=== PATIENT | male | born 1945 | race Caucasian/White ===

== ENCOUNTER 2024-11-03 18:04 | Outpatient (REF) | payer OTHER, SELFPAY ==
[2024-11-03 17:38] LABS: Abs Immature Grans 0.38 10^3/uL (0.0-0.06); HCT 30.7 % (40.0-50.0); HGB 9.8 g/dL (13.5-17.5); Immature Grans % 3.5 %; MCH 29.4 pg (27.0-33.0); MCHC 31.9 % (32.0-36.0); MCV 92 fL (80-95); MPV 10.7 fL (8.0-11.0); Platelet Count 490 10^3/uL (130-400); RBC 3.33 10^6/uL (4.36-5.78); RDW 13.9 % (11.8-14.1); RDW-SD 47.2 fL; WBC 10.86 10^3/uL (4.4-10.8)
[2024-11-03 17:47] LABS: ALT 24 U/L (16-63); AST 21 U/L (15-37); Albumin 2.2 g/dL (3.4-5.0); Alkaline Phosphatase 122 U/L (46-116); Anion Gap 11.7 mmol/L (3-11); BUN 31 mg/dL (7-18); Bilirubin, Total 0.2 mg/dL (0.2-1.0); CO2 22.3 mmol/L (21.0-32.0); Calcium 8.3 mg/dL (8.5-10.1); Calculated LDL 102 mg/dL (<100); Chloride 104 mmol/L (98-107); Cholesterol 157 mg/dL (<200); Estimated GFR 98.81 (mL/min/1.73m2); Glucose 127 mg/dL (74-106); HDL Cholesterol 29 mg/dL (>or=40); Magnesium 2.1 mg/dL (1.8-2.4); Potassium 4.7 mmol/L (3.5-5.1); Sodium 138 mmol/L (136-145); Total Protein 6.3 g/dL (6.4-8.2); Triglyceride 130 mg/dL (<150)
[2024-11-06 08:53] LABS: Prealbumin 22 mg/dL (20-40)
== END 2024-11-03 18:05 | disposition home or self-care (01) ==
LOC: LBN 18:04
PROVIDERS: Visit Provider Surgery
DX: K81.9 Cholecystitis, unspecified (principal); C22.1 Intrahepatic bile duct carcinoma; C79.51 Secondary malignant neoplasm of bone
CPT/HCPCS: 80053; 80061; 83735; 84100; 84134; 85025

== ENCOUNTER 2024-11-10 18:29 | Outpatient (REF) | payer OTHER, SELFPAY ==
[2024-11-10 16:44] LABS: ALT 24 U/L (16-63); AST 22 U/L (15-37); Albumin 2.3 g/dL (3.4-5.0); Alkaline Phosphatase 112 U/L (46-116); Anion Gap 10.0 mmol/L (3-11); BUN 32 mg/dL (7-18); Bilirubin, Total 0.3 mg/dL (0.2-1.0); CO2 25.0 mmol/L (21.0-32.0); Calcium 8.7 mg/dL (8.5-10.1); Calculated LDL 124 mg/dL (<100); Chloride 101 mmol/L (98-107); Cholesterol 171 mg/dL (<200); Estimated GFR 94.31 (mL/min/1.73m2); Glucose 167 mg/dL (74-106); HDL Cholesterol 31 mg/dL (>or=40); Magnesium 2.0 mg/dL (1.8-2.4); Potassium 4.2 mmol/L (3.5-5.1); Sodium 136 mmol/L (136-145); Total Protein 6.2 g/dL (6.4-8.2); Triglyceride 83 mg/dL (<150)
[2024-11-13 09:52] LABS: Prealbumin 20 mg/dL (20-40)
== END 2024-11-10 18:30 | disposition home or self-care (01) ==
LOC: LBN 18:29
PROVIDERS: Visit Provider Surgery
DX: C22.1 Intrahepatic bile duct carcinoma (principal); C61 Malignant neoplasm of prostate; C79.51 Secondary malignant neoplasm of bone
CPT/HCPCS: 80053; 80061; 85027; 83735; 84100; 84134

== ENCOUNTER 2024-11-17 22:53 | Outpatient (REF) | payer OTHER, SELFPAY ==
[2024-11-17 14:15] LABS: HCT 31.3 % (40.0-50.0); HGB 10.1 g/dL (13.5-17.5); MCH 29.0 pg (27.0-33.0); MCHC 32.3 % (32.0-36.0); MCV 90 fL (80-95); MPV 12.2 fL (8.0-11.0); Platelet Count 244 10^3/uL (130-400); RBC 3.48 10^6/uL (4.36-5.78); RDW 13.9 % (11.8-14.1); RDW-SD 46.0 fL; WBC 7.41 10^3/uL (4.4-10.8)
[2024-11-17 14:28] LABS: ALT 22 U/L (16-63); AST 18 U/L (15-37); Albumin 2.2 g/dL (3.4-5.0); Alkaline Phosphatase 95 U/L (46-116); Anion Gap 8.0 mmol/L (3-11); BUN 31 mg/dL (7-18); Bilirubin, Total 0.3 mg/dL (0.2-1.0); CO2 27.0 mmol/L (21.0-32.0); Calcium 8.0 mg/dL (8.5-10.1); Chloride 103 mmol/L (98-107); Estimated GFR 94.31 (mL/min/1.73m2); Glucose 132 mg/dL (74-106); Magnesium 2.0 mg/dL (1.8-2.4); Potassium 4.3 mmol/L (3.5-5.1); Sodium 138 mmol/L (136-145); Total Protein 5.8 g/dL (6.4-8.2)
[2024-11-17 15:47] LABS: Triglyceride 74 mg/dL (<150)
[2024-11-20 10:03] LABS: Prealbumin 16 mg/dL (20-40)
== END 2024-11-17 22:54 | disposition home or self-care (01) ==
LOC: LBN 22:53
PROVIDERS: Visit Provider Surgery
DX: C22.1 Intrahepatic bile duct carcinoma (principal)
CPT/HCPCS: 80053; 85027; 83735; 84100; 84134; 84478

== ENCOUNTER 2024-11-24 21:07 | Outpatient (REF) | payer OTHER, SELFPAY ==
[2024-11-24 15:31] LABS: Abs Immature Grans 0.11 10^3/uL (0.0-0.06); HCT 32.1 % (40.0-50.0); HGB 10.4 g/dL (13.5-17.5); Immature Grans % 1.5 %; MCH 29.2 pg (27.0-33.0); MCHC 32.4 % (32.0-36.0); MCV 90 fL (80-95); MPV 12.2 fL (8.0-11.0); Platelet Count 286 10^3/uL (130-400); RBC 3.56 10^6/uL (4.36-5.78); RDW 13.8 % (11.8-14.1); RDW-SD 45.6 fL; WBC 7.27 10^3/uL (4.4-10.8)
[2024-11-24 15:45] LABS: ALT 22 U/L (16-63); AST 19 U/L (15-37); Albumin 2.1 g/dL (3.4-5.0); Alkaline Phosphatase 84 U/L (46-116); Anion Gap 9.2 mmol/L (3-11); BUN 28 mg/dL (7-18); Bilirubin, Total 0.2 mg/dL (0.2-1.0); CO2 23.8 mmol/L (21.0-32.0); Calcium 8.0 mg/dL (8.5-10.1); Chloride 104 mmol/L (98-107); Estimated GFR 94.31 (mL/min/1.73m2); Glucose 134 mg/dL (74-106); Magnesium 2.0 mg/dL (1.8-2.4); Potassium 4.5 mmol/L (3.5-5.1); Sodium 137 mmol/L (136-145); Total Protein 5.6 g/dL (6.4-8.2)
[2024-11-24 16:04] LABS: Triglyceride 76 mg/dL (<150)
[2024-11-27 09:18] LABS: Prealbumin 16 mg/dL (20-40)
== END 2024-11-24 21:08 | disposition home or self-care (01) ==
LOC: LBN 21:07
PROVIDERS: Visit Provider Surgery
DX: C22.1 Intrahepatic bile duct carcinoma (principal); C61 Malignant neoplasm of prostate
CPT/HCPCS: 80053; 83735; 84100; 84134; 84478; 85025

== ENCOUNTER 2024-12-01 21:37 | Outpatient (REF) | payer OTHER, SELFPAY ==
[2024-12-01 15:47] LABS: Abs Immature Grans 0.05 10^3/uL (0.0-0.06); HCT 32.4 % (40.0-50.0); HGB 10.4 g/dL (13.5-17.5); Immature Grans % 0.8 %; MCH 28.7 pg (27.0-33.0); MCHC 32.1 % (32.0-36.0); MCV 89 fL (80-95); MPV 11.9 fL (8.0-11.0); Platelet Count 288 10^3/uL (130-400); RBC 3.63 10^6/uL (4.36-5.78); RDW 13.6 % (11.8-14.1); RDW-SD 44.9 fL; WBC 6.50 10^3/uL (4.4-10.8)
[2024-12-01 16:31] LABS: ALT 21 U/L (16-63); AST 20 U/L (15-37); Albumin 2.2 g/dL (3.4-5.0); Alkaline Phosphatase 75 U/L (46-116); Anion Gap 10.8 mmol/L (3-11); BUN 31 mg/dL (7-18); Bilirubin, Total 0.4 mg/dL (0.2-1.0); CO2 25.2 mmol/L (21.0-32.0); Calcium 8.3 mg/dL (8.5-10.1); Chloride 104 mmol/L (98-107); Estimated GFR 94.31 (mL/min/1.73m2); Glucose 117 mg/dL (74-106); Magnesium 2.1 mg/dL (1.8-2.4); Potassium 4.7 mmol/L (3.5-5.1); Sodium 140 mmol/L (136-145); Total Protein 5.8 g/dL (6.4-8.2); Triglyceride 67 mg/dL (<150)
[2024-12-04 08:47] LABS: Prealbumin 17 mg/dL (20-40)
== END 2024-12-01 21:38 | disposition home or self-care (01) ==
LOC: LBN 21:37
PROVIDERS: PCP Surgery; Visit Provider Surgery
DX: C22.1 Intrahepatic bile duct carcinoma (principal); C61 Malignant neoplasm of prostate
CPT/HCPCS: 80053; 83735; 84100; 84134; 84478; 85025

== ENCOUNTER 2024-12-08 18:29 | Outpatient (REF) | payer OTHER, SELFPAY ==
[2024-12-08 15:42] LABS: Abs Immature Grans 0.04 10^3/uL (0.0-0.06); HCT 30.8 % (40.0-50.0); HGB 9.8 g/dL (13.5-17.5); Immature Grans % 0.8 %; MCH 28.2 pg (27.0-33.0); MCHC 31.8 % (32.0-36.0); MCV 89 fL (80-95); MPV 11.8 fL (8.0-11.0); Platelet Count 277 10^3/uL (130-400); RBC 3.47 10^6/uL (4.36-5.78); RDW 13.6 % (11.8-14.1); RDW-SD 44.4 fL; WBC 5.17 10^3/uL (4.4-10.8)
[2024-12-08 16:38] LABS: ALT 21 U/L (16-63); AST 20 U/L (15-37); Albumin 2.1 g/dL (3.4-5.0); Alkaline Phosphatase 71 U/L (46-116); Anion Gap 10.1 mmol/L (3-11); BUN 28 mg/dL (7-18); Bilirubin, Total 0.3 mg/dL (0.2-1.0); CO2 24.9 mmol/L (21.0-32.0); Calcium 7.9 mg/dL (8.5-10.1); Chloride 104 mmol/L (98-107); Estimated GFR 94.31 (mL/min/1.73m2); Glucose 152 mg/dL (74-106); Magnesium 2.0 mg/dL (1.8-2.4); Potassium 4.2 mmol/L (3.5-5.1); Sodium 139 mmol/L (136-145); Total Protein 5.5 g/dL (6.4-8.2); Triglyceride 66 mg/dL (<150)
[2024-12-11 10:13] LABS: Prealbumin 16 mg/dL (20-40)
== END 2024-12-08 18:30 | disposition home or self-care (01) ==
LOC: LBN 18:29
PROVIDERS: PCP Surgery; Visit Provider Surgery
DX: C22.1 Intrahepatic bile duct carcinoma (principal); C61 Malignant neoplasm of prostate
CPT/HCPCS: 80053; 83735; 84100; 84134; 84478; 85025

== ENCOUNTER 2024-12-15 15:46 | Outpatient (REF) | payer OTHER, SELFPAY ==
[2024-12-15 16:06] LABS: Abs Immature Grans 0.08 10^3/uL (0.0-0.06); HCT 31.3 % (40.0-50.0); HGB 10.0 g/dL (13.5-17.5); Immature Grans % 1.2 %; MCH 28.5 pg (27.0-33.0); MCHC 31.9 % (32.0-36.0); MCV 89 fL (80-95); MPV 11.8 fL (8.0-11.0); Platelet Count 326 10^3/uL (130-400); RBC 3.51 10^6/uL (4.36-5.78); RDW 13.8 % (11.8-14.1); RDW-SD 44.7 fL; WBC 6.73 10^3/uL (4.4-10.8)
[2024-12-15 16:25] LABS: ALT 17 U/L (16-63); AST 17 U/L (15-37); Albumin 2.1 g/dL (3.4-5.0); Alkaline Phosphatase 66 U/L (46-116); Anion Gap 6.9 mmol/L (3-11); BUN 31 mg/dL (7-18); Bilirubin, Total 0.3 mg/dL (0.2-1.0); CO2 27.1 mmol/L (21.0-32.0); Calcium 8.4 mg/dL (8.5-10.1); Chloride 105 mmol/L (98-107); Estimated GFR 94.31 (mL/min/1.73m2); Glucose 138 mg/dL (74-106); Magnesium 2.0 mg/dL (1.8-2.4); Potassium 4.3 mmol/L (3.5-5.1); Sodium 139 mmol/L (136-145); Total Protein 5.6 g/dL (6.4-8.2); Triglyceride 59 mg/dL (<150)
[2024-12-18 09:22] LABS: Prealbumin 16 mg/dL (20-40)
== END 2024-12-15 15:47 | disposition home or self-care (01) ==
LOC: LBN 15:46
PROVIDERS: PCP Surgery; Visit Provider Surgery
DX: C22.1 Intrahepatic bile duct carcinoma (principal); C61 Malignant neoplasm of prostate
CPT/HCPCS: 80053; 83735; 84100; 84134; 84478; 85025

== ENCOUNTER 2024-12-22 15:44 | Outpatient (REF) | payer OTHER, SELFPAY ==
[2024-12-22 14:49] LABS: Abs Immature Grans 0.03 10^3/uL (0.0-0.06); HCT 31.8 % (40.0-50.0); HGB 10.4 g/dL (13.5-17.5); Immature Grans % 0.6 %; MCH 28.3 pg (27.0-33.0); MCHC 32.7 % (32.0-36.0); MCV 87 fL (80-95); MPV 11.8 fL (8.0-11.0); Platelet Count 309 10^3/uL (130-400); RBC 3.67 10^6/uL (4.36-5.78); RDW 13.7 % (11.8-14.1); RDW-SD 43.8 fL; WBC 4.80 10^3/uL (4.4-10.8)
== END 2024-12-22 15:45 | disposition home or self-care (01) ==
LOC: LBN 15:44
PROVIDERS: PCP Surgery; Visit Provider Surgery
DX: C79.51 Secondary malignant neoplasm of bone (principal); C61 Malignant neoplasm of prostate; C22.1 Intrahepatic bile duct carcinoma
CPT/HCPCS: 80053; 83735; 84100; 84134; 84478; 85025

== ENCOUNTER 2024-12-23 10:45 | Outpatient (REF) | payer OTHER, SELFPAY ==
[2024-12-23 12:00] LABS: Abs Immature Grans 0.03 10^3/uL (0.0-0.06); HCT 30.5 % (40.0-50.0); HGB 10.0 g/dL (13.5-17.5); Immature Grans % 0.6 %; MCH 28.0 pg (27.0-33.0); MCHC 32.8 % (32.0-36.0); MCV 85 fL (80-95); MPV 11.8 fL (8.0-11.0); Platelet Count 300 10^3/uL (130-400); RBC 3.57 10^6/uL (4.36-5.78); RDW 13.7 % (11.8-14.1); RDW-SD 42.9 fL; WBC 5.44 10^3/uL (4.4-10.8)
[2024-12-23 12:26] LABS: ALT 18 U/L (16-63); AST 18 U/L (15-37); Albumin 2.2 g/dL (3.4-5.0); Alkaline Phosphatase 67 U/L (46-116); Anion Gap 8.3 mmol/L (3-11); BUN 26 mg/dL (7-18); Bilirubin, Total 0.3 mg/dL (0.2-1.0); CO2 24.7 mmol/L (21.0-32.0); Calcium 8.2 mg/dL (8.5-10.1); Chloride 105 mmol/L (98-107); Estimated GFR 94.31 (mL/min/1.73m2); Glucose 101 mg/dL (74-106); Magnesium 2.1 mg/dL (1.8-2.4); Potassium 4.4 mmol/L (3.5-5.1); Sodium 138 mmol/L (136-145); Total Protein 5.8 g/dL (6.4-8.2); Triglyceride 88 mg/dL (<150)
[2024-12-25 09:52] LABS: Prealbumin 18 mg/dL (20-40)
== END 2024-12-23 10:46 | disposition home or self-care (01) ==
LOC: LBN 10:45
PROVIDERS: PCP Surgery; Visit Provider Surgery
DX: C22.1 Intrahepatic bile duct carcinoma (principal); C79.81 Secondary malignant neoplasm of breast
CPT/HCPCS: 80053; 83735; 84100; 84134; 84478; 85025

== ENCOUNTER 2024-12-26 10:44 | Inpatient (IN) | payer OTHER, MEDICARE, SELFPAY ==
[2024-12-26] VITALS (9 sets, daily range): BP systolic 96–133; BP diastolic 50–71; PULSE 87–116; RESP 16–20; TEMP 36.9–38.7; O2SAT 94–98
--- NOTE | 2024-12-26 | DI.RAD_ITS ---
Exam(s) XR PORTABLE CHEST AP EXAM: XR PORTABLE CHEST AP CLINICAL HISTORY: fever, leukopenia, CA patient, looking for source TECHNIQUE: 2D digital imaging was performed. COMPARISON: No exams were available for comparison FINDINGS: A PICC line is in place via the right arm. The tip lies in the upper right atrium. LUNGS: Clear. No pleural abnormality seen. HEART: Normal size. AORTA: Normal diameter. BONES: Unremarkable for age. Soft tissues: Hiatal hernia. IMPRESSION: No acute pulmonary findings. The preliminary [facility] report was reviewed. DATA REPOSITORY: RADIATION DOSE DELIVERED:
--- NOTE | 2024-12-26 11:09 | W.ED.GENAD ---
Discharge Plan Disposition Patient Disposition: Admit to [facility] Condition: Poor Discharge Details Clinical Impression: Vomiting Primary Care Provider: Rebecca Mane ED Provider: Ora Kevin General Date/Time Provider Initiated Documentation: 12/26/24 11:09. Limitations to Documentation: no limitations. Information obtained by: patient, family (), RN notes reviewed and old records reviewed [place] History of Present Illness 79 year old M presents to the emergency department with the chief complaint of vomiting, dysmotility, described as moderate and similar to prior episodes, Quality is described as other (no pain, just sudden episodes of emesis), Patient started experiencing this month(s) (worse the past 24hrs) and it has been constant. No relieving factors improve symptom(s), Eating worsens symptoms . Patient notes fever/chills (fever intermittent since last night), loss of appetite and nausea/vomiting; denies chest pain, cough, headaches, rash, shortness of breath and weakness. Patient did receive the following treatments prior to arrival, other (Reglan) Related Data Allergies Allergy/AdvReac Type Severity Reaction Status Date / Time No Known Allergies Allergy Unverified 12/26/24 10:53 General Stated Complaint: Nausea/Vomit/Diar CESAR: 3 Review of Systems Constitutional Constitutional: Reports as per HPI and Denies headache(s) ENT Ears, Nose, Mouth, and Throat: Denies headache(s) Cardiovascular Cardiovascular: Reports as per HPI, Denies chest pain and Denies dyspnea Respiratory Respiratory: Reports as per HPI, Denies cough and Denies dyspnea Gastrointestinal Gastrointestinal: Reports as per HPI Genitourinary Genitourinary: Denies system reviewed and no additional complaints, except as documented (patient denies any change in urinary habits) Musculoskeletal Musculoskeletal: Reports as per HPI and Denies back pain Integumentary/Breasts Skin/Breast: Reports as per HPI and Denies rash Neurologic Neurologic: Reports as per HPI and Denies headache(s) Exam Const General: cooperative, comfortable, no acute distress, well developed and ill appearing chronically Nutritional Appearance: average body habitus and well nourished Orientation: alert and awake Resp Effort & Inspection: normal respiratory effort, able to speak in complete sentences and no respiratory distress Auscultation: clear to auscultation bilaterally, no rales, no rhonchi and no wheezes Cardio Rate: regular rate Rhythm: regular rhythm Heart Sounds: S1 normal and S2 normal GI Inspection: scar (well healed midline incision) Palpation: soft, not firm, no guarding, no pulsatile masses, not rigid, nontender and No ascites Back/Spine/Pelvis Back: no CVA tenderness Skin General skin exam: no rashes or lesions noted Trauma: no lacerations or abrasions Neuro General: patient alert and patient awake Cognition: normal cognition Speech: speech normal Gait: normal gait Course Vital Signs Vital signs: Vital Signs Temperature 37.1 C 12/26/24 10:54 Pulse 111 H 12/26/24 10:54 Respiratory Rate 20 12/26/24 10:54 Blood Pressure 105/71 12/26/24 10:54 Pulse Oximetry 94 12/26/24 10:54 Temperature 37.1 C 12/26/24 10:57 Temperature Source Temporal Artery Scan 12/26/24 10:57 Pulse 111 H 12/26/24 10:57 Respiratory Rate 20 12/26/24 10:57 Blood Pressure 105/71 12/26/24 10:57 Blood Pressure Position Sitting 12/26/24 10:57 Pulse Oximetry 94 12/26/24 10:57 Oxygen Delivery Method Room Air 12/26/24 10:57 Oxygen Flow Rate 0 12/26/24 10:57 Pain Level 0 12/26/24 10:57 Medical Decision Making Patient is a pleasant 79-year-old gentleman with past medical history significant for poorly differentiated cholangiocarcinoma s/p Whipple, presenting with c/c of vomiting. He reports that he has had daily nausea and vomiting since his Whipple which occurred on October 17 of this year. For this reason, the surgical team advised him that he is not a candidate for further cancer treatments including chemo or radiation despite not having clear margins from his recent Whipple surgery. Patient is on promotility agents, followed by palliative care. He denies any increase in his pain. He does state that he has had fevers intermittently for the past 24 hours. He denies any cough, cold, shortness of breath, runny nose, sore throat, new abdominal pain, change in urinary or bowel habits. Did take an antipyretic yesterday. Patient does receive TPN via PICC line, no recent change in this. Patient is on Reglan as his promotility agent. Despite this, has had vomiting. He reports that the vomiting is fairly spontaneous and not accompanied with significant nausea. He is only able to eat small amounts at a time which helps to prevent this but as adjuvant insufficient at maintaining muscle mass. He does report that he has been maintaining his weight with the assistance of the TPN. Patient previously resided in [place] but recently moved to the area where he can stay with his son and spent time with family as he was given poor prognosis. On exam, patient appears nontoxic. He does appear to have generalized fatigue and some muscular wasting but does not appear cachectic. Lungs are clear. Abdominal exam is benign, nontender. His incision appears to have healed well with no erythema, warmth or drainage. With the patient having known cancer, fever, certainly considered neutropenic fever although less likely as is not actively undergoing treatment. Considered infection associated with his surgery but given time since surgery as well as nontender abdomen, this too is also less likely. Patient is also had prostate cancer with prior prostatectomy being completed, consider UTI as he does have some difficulty with urination at baseline. No changes in this however. Patient did request to have POLST form completed. He reports that he was supposed to have had this completed with his palliative care team but they are going to mail it to him as he is receiving remote treatment from them. He states that he has not received this. This was completed with the patient, his and myself. Patient wants to be DNR DNI and is interested only in minimal treatment to be able to be comfortable but should the option arise for pursuing cancer treatment, he would be interested. Labs reviewed. No leukocytosis. If anything, patient has slight lymphopenia- no neutropenia- patient is slightly lymphopenia of 3.63 which is downtrending from 544 on 9 6. Lactate is within normal limits. CMP without any significant abnormalities. Troponin within normal limits. Lipase within normal limits. Urinalysis pending. With his inability to maintain oral intake that sounds to be progressively worsening, obtain CT to evaluate for any progression of cancer. CT reviewed by radiologist: MPRESSION:: Status post Whipple procedure. No acute abnormality in the abdomen or pelvis. Status post prostatectomy. Sclerotic metastases noted in the right ilium and ischium. Patietn was aware of the mets to the pelvis but reported that it had been very small and localized to the acetabulum. With toño progression, and new pancreatic head mass, will consult [facility] oncology. While it has been reported that he is not a candidate for therapy, he would like to discuss with oncolgy and understand why as well as options. Consulted with Dr. Sharif with oncology at [facility] They advised that they typically do not follow with these patients. However, they will see if they can see them in the clinic. Reevaluated the patient- he is now not able to stop having episodes of heaving or emesis- all non-bloody. Will give another dose of Reglan, he did take his schedueld dosing previously. Consulted with hospitalist regading admission for his persistent emesis. They requested consultation with general surgeon. Spoke with Dr. Noyola regarding admission as well- he will try to figure out what else might be of benefit. After Dennys and Kt spoke, they wonder if patient would be best served with transfer to given his prior surgery with them which is reasonable. I called , they are at surge capacity but will speak with medical office asst given his complex history and call back. [facility] called back and they are listing for the next 2 days. They are trying to get a hold of the surgeon who performed a Whipple given the complexity of the case although he is not currently on-call. If they do call back, will encourage that this get forwarded to the admitting team for further discussion. At the end my shift, plan is for patient to be admitted for further management. PFSH All Active Problems (Updated 12/26/24 @ 17:48 by CITLALLI Nix) Vomiting (Acute) Social History Smoking/Tobacco Use Status: Never Smoking risk assessment performed?: Yes Alcohol Intake: never Drug use: Never Substance use type: does not use Do you feel safe at home: Yes Do you feel safe in your relationship?: Yes
--- NOTE | 2024-12-26 12:36 | NUR.NOTE ---
Nursing Note: Unable to get a blood return from pt's PICC line. Pt has been receiving IV medications at home through PICC line. Pt stated there has been difficulty getting blood return from site. Spoke with provider about giving IV fluids through PICC, Provider ok with that.
[2024-12-26] MEDS: Lactated Ringers 1,000 ML 1000 ML IV (12:47)
[2024-12-26 13:02] LABS: Abs Immature Grans 0.03 10^3/uL (0.0-0.06); HCT 32.2 % (40.0-50.0); HGB 10.4 g/dL (13.5-17.5); Immature Grans % 0.8 %; MCH 27.2 pg (27.0-33.0); MCHC 32.3 % (32.0-36.0); MCV 84 fL (80-95); MPV 11.2 fL (8.0-11.0); Platelet Count 236 10^3/uL (130-400); RBC 3.82 10^6/uL (4.36-5.78); RDW 14.1 % (11.8-14.1); RDW-SD 43.3 fL; WBC 3.63 10^3/uL (4.4-10.8)
[2024-12-26 13:27] LABS: ALT 16 U/L (16-63); AST 19 U/L (15-37); Albumin 2.3 g/dL (3.4-5.0); Alkaline Phosphatase 68 U/L (46-116); Anion Gap 9.0 mmol/L (3-11); BUN 23 mg/dL (7-18); Bilirubin, Total 0.5 mg/dL (0.2-1.0); CO2 24.0 mmol/L (21.0-32.0); Calcium 8.3 mg/dL (8.5-10.1); Chloride 104 mmol/L (98-107); Estimated GFR 87.42 (mL/min/1.73m2); Glucose 151 mg/dL (74-106); Magnesium 1.9 mg/dL (1.8-2.4); Potassium 3.8 mmol/L (3.5-5.1); Sodium 137 mmol/L (136-145); Total Protein 6.2 g/dL (6.4-8.2); Troponin I 17 ng/L (<or=76)
[2024-12-26 13:30] LABS: LDH 181 U/L (85-227); Lipase 17 U/L (<78)
[2024-12-26] MEDS: Normal Saline - Diluent 50 ML VIAL IJ (14:19)
[2024-12-26] MEDS: Omnipaque 350 MG/ML 100 ML BTL IJ (14:19)
[2024-12-26] MEDS: Normal Saline Flush 10 ML SYR IVP ×2 (14:21→20:38)
--- NOTE | 2024-12-26 14:22 | DI.CT_ITS ---
Exam(s) CT ABDOMEN PELVIS W EXAM: CT ABDOMEN PELVIS W CLINICAL HISTORY: abdominal tenderness, vomiting, recent Whipple. TECHNIQUE: Imaging Protocol: Axial computed tomography images with coronal and sagittal reformatted images were created and reviewed CONTRAST MATERIAL: Intravenous: Omnipaque 350 Contrast volume:75 ml Oral: no COMPARISON: No exams were available for comparison FINDINGS: ABDOMEN and PELVIS: Lung Bases: Large hiatal hernia containing portion of the fundus of the stomach as well as fat. Liver: Normal density. No suspicious mass. Cyst in caudate lobe. Additional cyst lateral right lobe. Gallbladder and biliary tract: Cholecystectomy. Status post recent Whipple procedure. No biliary dilation. Pancreas: Low-density area in the pancreatic head. Findings may represent a mass. No prior comparison exams available. No abnormal calcifications or inflammatory process. Spleen: Normal. Kidneys: Normal size, contour and axis. There are stones as well as scarring at the upper pole of the right kidney. There is also a right upper pole cyst. No obstructive uropathy. No suspicious masses seen. Adrenal glands: No masses seen. Vasculature: Abdominal aorta non-dilated. Soft tissues: Midline surgical scar is unremarkable. Bladder: No gross wall thickening. No calculi.No focal mass. Bowel: Suture material at body of stomach and antrum. Status post recent Whipple procedure. No obstruction. No bowel wall thickening. Appendix normal. Sigmoid diverticulosis. Peritoneal cavity: Fluid collection in right lower quadrant adjacent to a pump consistent with reservoir for penile prosthesis. Surgical clips in the low pelvis. No ascites. No focal collection. No mesenteric inflammatory response. No free air. Bones: Old right inferior and superior pubic ramus fractures. Areas of sclerosis in the right ischium, right ilium, with sclerotic bony metastases. Reproductive organs: Penile prosthesis. Status post prostatectomy. Lymph nodes: 2.3 centimeter portacaval lymph node. IMPRESSION:: Status post Whipple procedure. No acute abnormality in the abdomen or pelvis. Status post prostatectomy. Sclerotic metastases noted in the right ilium and ischium. RADIATION DOSE DELIVERED: Total DLP DATA REPOSITORY: All CT scans at this facility are submitted to the National Radiology Data Registry (NRDR) Dose Index Registry (DIR) with the [employer] (ACR). RADIATION OPTIMIZATION: All CT scans at this facility use at least one of these dose optimization techniques: automated exposure control; mA and/or kV adjustment per patient size (includes targeted exams where dose is matched to clinical indication); or iterative reconstruction.
[2024-12-26 14:35] LABS: Glucose Negative (Negative)
--- NOTE | 2024-12-26 15:45 | NUR.NOTE ---
Nursing Note: Patient complained of an episode of vomiting, shaking for about 15 mins. Oral temp 99.3f and BGL 132. Provider notified
[2024-12-26] MEDS: Metoclopramide 10 MG/2 ML VIAL IVP (17:13)
[2024-12-26] MEDS: Lactated Ringers 1,000 ML 500 ML IV (17:13)
--- NOTE | 2024-12-26 17:50 | W.PM.HP.N ---
Date of service: 12/26/24 Time of Service: 17:50 Assessment and Plan Assessment and plan (1) Intractable vomiting without nausea: Status: Acute Assessment and plan: - Unclear cause at this time - Patient did have Whipple procedure October 17, 2024 and has had spontaneous vomiting without nausea since that time - Attempts were made to transfer patient to [facility] where procedure was done but they stated they would place patient on 48-hour list but are unable to accept in transfer at this time due to capacity - Discussed case with [facility] general surgeon Dr. Noyola who recommended trialing different antiemetics, making patient n.p.o. for upper endoscopy tomorrow 12/27/2024 -As needed metoclopramide, and Ativan for vomiting -Patient's surgeon Dr. Ricketts gracefully called and give additional information on the patient. She states she has been on multiple antiemetics and promotility agents without improvement. She also stated that she has been closely following his electrolytes while on TPN and they have all been within normal limits - Upon further questioning of the patient, the real reason he came in is because he vomited 5 times last night and developed a fever, which concerned him. He understands and there may not be a fix for his more chronic vomiting and that it was slowly improving, but given the fever and significant increase in amount of vomiting episodes on the night of 12/25/2024 prompted him to come to the emergency department. -It is possible that increased episodes of vomiting experienced at night prior to arrival as well as fever may be secondary to a viral gastritis, though out of an abundance of caution we will continue with plan to be further evaluated by general surgeon Dr. Noyola, and treat empirically for bacterial infection/sepsis as noted below -Will continue p.o. erythromycin, IV metoclopramide, IV Zofran, and IV Ativan for vomiting - Appreciate nutrition consultation for ongoing TPN (2) Sepsis: Status: Acute Assessment and plan: - Patient tingling meets sepsis criteria at this time with a heart rate of 100, temperature of 101.6 ?F, and leukopenia with a white blood cell count of 3.6, though no source of infection is noted at this time - Given that patient has cholangiosarcoma status post Whipple, will initiate vancomycin and cefepime - Blood cultures were already drawn in the emergency department, will follow-up - Will also order chest x-ray and head CT to look for potential source of infection as CT abdomen pelvis was without potential source (3) Cholangiocarcinoma: Status: Acute Assessment and plan: - Unclear stage at this time - Patient has not had in person follow-up with oncology since his procedure (4) H/O Whipple procedure: Status: Acute Assessment and plan: - Procedure done October 17, 2024 as noted above - Cannot rule out post operative or intraoperative complications resulting in intractable vomiting as noted above History of Present Illness History of Present Illness Chief Complaint: vomiting Narrative: 79-year-old male with a past medical history of poorly differentiated cholangiole sarcoma status post Whipple in October [address] [facility] who presents to the emergency department with vomiting. Patient states that he has had daily nausea and vomiting since having his Whipple on October 17, 2024. He also states that for that reason the surgical team advised him that he is not a candidate for further cancer treatments including chemo or radiation despite not having clear margins from his Whipple procedure. He was placed on promotility agents and has been followed by palliative care stating what prompted him to come in as that he thought he had a fever at home and that his vomiting has been more persistent despite being on Reglan. He also has TPN via a PICC line but this has not had any recent changes. He also states that the vomiting comes on spontaneously but is not associated with any nausea he is only able to tolerate small amounts of p.o. intake. In the emergency department he was noted as having normal physical exam and normal vital signs, as well as CBC only remarkable for some leukopenia and normal CMP. CT abdomen and pelvis was also without acute findings, only notable for status post Whipple procedure and sclerotic metastasis noted in the right ilium and ischium. While in the emergency department he was given IV fluids as well as metoclopramide without improvement. Case was first discussed with [facility] [place] who stated that they do not follow post Whipple procedure patients but stated they would see him in the clinic. Emergency room provider then attempted to reach out to patient's surgeon for transfer, and though the transfer center said that they are at max capacity that would put him on a 48-hour list and attempted to contact his surgeon so that he/she could give additional recommendations. At which time emergency room provider paged hospitalist for admission for patient with intractable vomiting. Review of Systems All systems reviewed & are unremarkable except as noted in HPI and below PFSH All Active Problems (Updated 12/26/24 @ 19:32 by YAA SUAZO) Sepsis (Acute) H/O Whipple procedure (Acute) Cholangiocarcinoma (Acute) Intractable vomiting without nausea (Acute) Intractable vomiting (Acute) Vomiting (Acute) Social History Smoking/Tobacco Use Status: Never Smoking risk assessment performed?: Yes Alcohol Intake: never Drug use: Never Substance use type: does not use Do you feel safe at home: Yes Do you feel safe in your relationship?: Yes Meds Allergies and Home Medications Allergies Allergy/AdvReac Type Severity Reaction Status Date / Time No Known Allergies Allergy Unverified 12/26/24 10:53 Home Medications ?Medication ?Instructions ?Recorded ?Confirmed ?Type acetaminophen 1,000 mg/100 mL (10 1,000 mg IV Q6H 12/26/24 12/26/24 History mg/mL) intravenous solution (Ofirmev) erythromycin estolate 250 mg/5 mL 200 mg PO TID 12/26/24 12/26/24 History oral suspension insulin regular human 100 unit/mL 36 unit subcut QPM 12/26/24 12/26/24 History injection solution (Humulin R Regular U-100 Insulin) lorazepam 0.5 mg tablet 0.5 mg PO Q6H PRN 12/26/24 12/26/24 History metoclopramide HCl 10 mg/mL 10 mg .Route DAILY 12/26/24 12/26/24 History injection syringe ondansetron HCl 4 mg/2 mL 4 mg IV .Q8 PRN 12/26/24 12/26/24 History intravenous syringe pantoprazole 40 mg intravenous 40 mg IV DAILY 12/26/24 12/26/24 History solution (Protonix) Exam Narrative Exam Narrative: Well-appearing gentleman laying in bed in no acute distress, ANO x 4, heart regular rhythm, lungs clear to auscultation bilaterally, abdomen soft, nontender, nondistended Results Labs 12/26/24 12:41 12/26/24 12:41 Labs: Laboratory Results - last 24 hr 12/26/24 12/26/24 12/26/24 12:10 12:41 14:08 WBC 3.63 L RBC 3.82 L Hgb 10.4 L Hct 32.2 L MCV 84 MCH 27.2 MCHC 32.3 RDW 14.1 Plt Count 236 MPV 11.2 H Immature Gran % 0.8 Neutrophils % 81.6 Lymphocytes % 8.8 Monocytes % 8.5 Eosinophils % 0.0 Basophils % 0.3 Nucleated RBC % 0.0 Absolute Neutrophils 2.96 Absolute Lymphocytes 0.32 L Absolute Monocytes 0.31 Absolute Eosinophils 0.00 Absolute Basophils 0.01 VBG Lactate 1.6 Sodium 137 Potassium 3.8 Chloride 104 Carbon Dioxide 24.0 Anion Gap 9.0 BUN 23 H Creatinine 0.9 Est GFR (CKD-EPI 2020) 87.42 Glucose 151 H Calcium 8.3 L Magnesium 1.9 Total Bilirubin 0.5 AST 19 ALT 16 Alkaline Phosphatase 68 Lactate Dehydrogenase 181 Troponin I Cancelled 17 Total Protein 6.2 L Albumin 2.3 L Lipase 17 Urine Color Yellow Urine Clarity Clear Urine pH 7.0 Ur Specific Blanco 1.025 Urine Protein Negative Urine Ketones Negative Urine Blood Negative Urine Nitrite Negative Urine Bilirubin Negative Urine Urobilinogen 1.0 H Ur Leukocyte Esterase Negative Urine Glucose Negative 12/26/24 14:10 WBC RBC Hgb Hct MCV MCH MCHC RDW Plt Count MPV Immature Gran % Neutrophils % Lymphocytes % Monocytes % Eosinophils % Basophils % Nucleated RBC % Absolute Neutrophils Absolute Lymphocytes Absolute Monocytes Absolute Eosinophils Absolute Basophils VBG Lactate Sodium Potassium Chloride Carbon Dioxide Anion Gap BUN Creatinine Est GFR (CKD-EPI 2020) Glucose Calcium Magnesium Total Bilirubin AST ALT Alkaline Phosphatase Lactate Dehydrogenase Troponin I Cancelled Total Protein Albumin Lipase Urine Color Urine Clarity Urine pH Ur Specific Blanco Urine Protein Urine Ketones Urine Blood Urine Nitrite Urine Bilirubin Urine Urobilinogen Ur Leukocyte Esterase Urine Glucose Last Vital Signs Temp 101.6 F H 12/26/24 17:30 Pulse 103 H 12/26/24 17:30 Resp 18 12/26/24 17:30 BP 129/57 L 12/26/24 17:30 Pulse Ox 97 12/26/24 17:30 Time Spent Time spent with Patient: >75 minutes Time was spent: preparing to see the patient(eg.review tests), obtaining and/or reviewing separately otained hiistory, ordering medications,tests, procedures, referring, communicating with other health patient care assistant, indepentently interpreting results, counseling the patient and care coordination
[2024-12-26] MEDS: ACETAMINOPHEN 1,000 MG/100 ML BAG 400 MG IVPB (17:53)
--- NOTE | 2024-12-26 19:04 | SCONE_ITS ---
Date of service: 12/26/24 Time of Service: 19:04 Assessment and Plan Assessment and plan (1) Intractable vomiting without nausea: Status: Acute Assessment and plan: The fact that the nausea and vomiting started immediately after surgery, and has persisted suggest that this is probably an anatomic issue as opposed to delayed gastric emptying after distal gastrectomy. By my read, there is really not much contrast that leaves the stomach on the early CAT scan performed at [facility] in the early part of his recovery. In the CAT scan performed today is a little difficult to interpret without enteral contrast. Based on the operative report, as well as some of the pictures, I doubt that the gastrojejunostomy is strictured. Staple line is evident on the CAT scan and at least that part on today's study appears to be widely patent. Although this can be difficult to interpret when multiple staple lines are in the same area. It is also possible that there is a obstruction from passage of this loop through the transverse colon mesentery. Classically, this mesenteric defect was sutured up onto the stomach in order to prevent stress on that loop of small intestine, and obstructive pathophysiology. Although that practice is variable, I do not see any description in the operative report that that was performed, and I suppose it with a large hiatal hernia, the upward movement of the stomach could be pulling that limb up through the transverse colon mesentery resulting in obstruction phenomenon at the gastrojejunostomy. For now, I think keeping him n.p.o. is the most reasonable course. You could try droperidol to see if that helps with the vomiting. If the symptoms are really intractable, the nasogastric decompression would be the next step. So long as he can tolerate it, I think a fluoroscopic upper GI with contrast would be reasonable next step. History of Present Illness History of Present Illness Chief Complaint: nasuea and vomiting Narrative: Noe is 79 years old. 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 Essentially, he had a Whipple procedure, with a retrocolic retrogastric Billroth II gastrojejunostomy. His postoperative course was complicated by persistent nausea and vomiting requiring total parenteral nutrition. He did undergo a CAT scan in the first week or so after surgery which essentially described postsurgical changes. Although the gastrojejunostomy is said to be patent, there is really not much contrast that passes through it on the study. The [facility] notes describe plan for gastric emptying study, but that was never performed. He was discharged home on total parenteral nutrition. Since then he had some transient improvement in the nausea and vomiting. He has tried erythromycin, and currently takes Reglan. This might improve the symptoms a little bit, but certainly does not relieve them such that he can eat. He comes to the emergency department today with worsening of his nausea and vomiting associated with fevers PFSH All Active Problems (Updated 12/26/24 @ 19:32 by YAA SUAZO) Sepsis (Acute) H/O Whipple procedure (Acute) Cholangiocarcinoma (Acute) Intractable vomiting without nausea (Acute) Intractable vomiting (Acute) Vomiting (Acute) Social History Smoking/Tobacco Use Status: Never Smoking risk assessment performed?: Yes Alcohol Intake: never Drug use: Never Substance use type: does not use Housing: apartment Do you feel safe at home: Yes Do you feel safe in your relationship?: Yes Exam GI Other: Abdomen soft, nontender nondistended. Results Last Vital Signs Temp 101.6 F H 12/26/24 17:30 Pulse 103 H 12/26/24 17:30 Resp 18 12/26/24 17:30 BP 129/57 L 12/26/24 17:30 Pulse Ox 97 12/26/24 17:30 Labs 12/27/24 06:15 12/27/24 06:15 Labs: Laboratory Results - last 24 hr 12/26/24 12/26/24 12/26/24 12:10 12:41 14:08 WBC 3.63 L RBC 3.82 L Hgb 10.4 L Hct 32.2 L MCV 84 MCH 27.2 MCHC 32.3 RDW 14.1 Plt Count 236 MPV 11.2 H Immature Gran % 0.8 Neutrophils % 81.6 Lymphocytes % 8.8 Monocytes % 8.5 Eosinophils % 0.0 Basophils % 0.3 Nucleated RBC % 0.0 Absolute Neutrophils 2.96 Absolute Lymphocytes 0.32 L Absolute Monocytes 0.31 Absolute Eosinophils 0.00 Absolute Basophils 0.01 VBG Lactate 1.6 Sodium 137 Potassium 3.8 Chloride 104 Carbon Dioxide 24.0 Anion Gap 9.0 BUN 23 H Creatinine 0.9 Est GFR (CKD-EPI 2020) 87.42 Glucose 151 H Calcium 8.3 L Magnesium 1.9 Total Bilirubin 0.5 AST 19 ALT 16 Alkaline Phosphatase 68 Lactate Dehydrogenase 181 Troponin I Cancelled 17 Total Protein 6.2 L Albumin 2.3 L Lipase 17 Urine Color Yellow Urine Clarity Clear Urine pH 7.0 Ur Specific [place] 1.025 Urine Protein Negative Urine Ketones Negative Urine Blood Negative Urine Nitrite Negative Urine Bilirubin Negative Urine Urobilinogen 1.0 H Ur Leukocyte Esterase Negative Urine Glucose Negative 12/26/24 14:10 WBC RBC Hgb Hct MCV MCH MCHC RDW Plt Count MPV Immature Gran % Neutrophils % Lymphocytes % Monocytes % Eosinophils % Basophils % Nucleated RBC % Absolute Neutrophils Absolute Lymphocytes Absolute Monocytes Absolute Eosinophils Absolute Basophils VBG Lactate Sodium Potassium Chloride Carbon Dioxide Anion Gap BUN Creatinine Est GFR (CKD-EPI 2020) Glucose Calcium Magnesium Total Bilirubin AST ALT Alkaline Phosphatase Lactate Dehydrogenase Troponin I Cancelled Total Protein Albumin Lipase Urine Color Urine Clarity Urine pH Ur Specific [place] Urine Protein Urine Ketones Urine Blood Urine Nitrite Urine Bilirubin Urine Urobilinogen Ur Leukocyte Esterase Urine Glucose Imaging Abdomen CT scan report/results: report reviewed and image reviewed CT scan - pelvis: report reviewed and image reviewed
--- NOTE | 2024-12-26 19:18 | W.PC.ACHO ---
Registration Status: REG ER Primary Language: Preferred Language: ED Information & Data Chief Complaint Nausea/Vomit/Diar 12/26/24 15:06 Chief Complaint Nausea/Vomit/Diar 12/26/24 12:57 Other Complaint Fever 12/26/24 10:54 Triage Note 09/17 adarsh at [facility] [place] Not 12/26/24 10:54 doing chemo or radiation at this time. Has been vomiting BID since surgery. Yesterday began vomiting throughout the day. Unable to keep anything down. Is on TPN. Has been having fever. Did not take tylenol today. Most Recent Vital Signs Temperature 38.7 C H 12/26/24 17:30 Temperature Source Oral 12/26/24 17:30 Pulse 103 H 12/26/24 17:30 Pulse Rhythm Regular 12/26/24 15:05 Respiratory Rate 18 12/26/24 17:30 Respiratory Effort Normal, Non-Labored 12/26/24 17:30 Respiratory Depth Normal 12/26/24 17:30 Respiratory Pattern Normal 12/26/24 17:30 Blood Pressure 129/57 L 12/26/24 17:30 Blood Pressure Mean 81 12/26/24 17:30 Blood Pressure Position Sitting 12/26/24 10:57 Pulse Oximetry 97 12/26/24 17:30 Oxygen Delivery Method Room Air 12/26/24 13:52 Oxygen Flow Rate 0 12/26/24 13:52 Pain Level 0 12/26/24 10:57 Allergies No Known Allergies Allergy (Unverified 12/26/24 10:53) Precautions Isolation Standard precaution 12/26/24 15:06 Active Medications Generic Name Dose Route Start Last Admin Trade Name Freq PRN Reason Stop Dose Admin Iohexol 100 ml 12/26/24 14:30 12/26/24 14:19 Omnipaque 350 Mg/Ml 100 Ml Btl IJ 01/25/25 23:59 75 ml DIRECTED LASHAY Administration Sodium Chloride 50 ml 12/26/24 14:30 12/26/24 14:19 Normal Saline - Diluent 50 Ml Vial IJ 50 ml DIRECTED LASHAY Administration Sodium Chloride 0 ml 12/26/24 14:18 12/26/24 14:21 Normal Saline Flush 10 Ml Syr IVP 10 ml PRN PRN Administration IV IV Catheter Type [Right PICC] PICC Line Diagnostics 12/26/24 12/26/24 12/26/24 Range/Units 14:10 14:08 12:41 WBC 3.63 L (4.4-10.8) 10^3/uL RBC 3.82 L (4.36-5.78) 10^6/uL Hgb 10.4 L (13.5-17.5) g/dL Hct 32.2 L (40.0-50.0) % MCV 84 (80-95) fL MCH 27.2 (27.0-33.0) pg MCHC 32.3 (32.0-36.0) % RDW 14.1 (11.8-14.1) % Plt Count 236 (130-400) 10^3/uL MPV 11.2 H (8.0-11.0) fL Immature Gran % 0.8 % Neutrophils % 81.6 % Lymphocytes % 8.8 % Monocytes % 8.5 % Eosinophils % 0.0 % Basophils % 0.3 % Nucleated RBC % 0.0 (0.0-0.3) % Absolute Neutrophils 2.96 (1.2-6.7) 10^3/uL Absolute Lymphocytes 0.32 L (1.2-3.4) 10^3/uL Absolute Monocytes 0.31 (0.1-0.8) 10^3/uL Absolute Eosinophils 0.00 (0.0-0.7) 10^3/uL Absolute Basophils 0.01 (0.0-0.2) 10^3/uL VBG Lactate 1.6 (<or=2.0) mmol/L Sodium 137 (136-145) mmol/L Potassium 3.8 (3.5-5.1) mmol/L Chloride 104 (98-107) mmol/L Carbon Dioxide 24.0 (21.0-32.0) mmol/L Anion Gap 9.0 (3-11) mmol/L BUN 23 H (7-18) mg/dL Creatinine 0.9 (0.70-1.30) mg/dL Est GFR (CKD-EPI 2020) 87.42 (mL/min/1.73m2) Glucose 151 H (74-106) mg/dL Calcium 8.3 L (8.5-10.1) mg/dL Magnesium 1.9 (1.8-2.4) mg/dL Total Bilirubin 0.5 (0.2-1.0) mg/dL AST 19 (15-37) U/L ALT 16 (16-63) U/L Alkaline Phosphatase 68 (46-116) U/L Lactate Dehydrogenase 181 (85-227) U/L Troponin I Cancelled 17 Total Protein 6.2 L (6.4-8.2) g/dL Albumin 2.3 L (3.4-5.0) g/dL Lipase 17 (<78) U/L Urine Color Yellow (Yellow) Urine Clarity Clear (Clear) Urine pH 7.0 (5-8) Ur Specific [place] 1.025 (1.005-1.025) Urine Protein Negative (Neg-Trace) mg/dL Urine Ketones Negative (Negative) mg/dL Urine Blood Negative (Negative) Urine Nitrite Negative (Negative) Urine Bilirubin Negative (Negative) Urine Urobilinogen 1.0 H (Up to 0.2) mg/dL Ur Leukocyte Esterase Negative (Negative) Urine Glucose Negative (Negative) mg/dL 12/26/24 Range/Units 12:10 WBC (4.4-10.8) 10^3/uL RBC (4.36-5.78) 10^6/uL Hgb (13.5-17.5) g/dL Hct (40.0-50.0) % MCV (80-95) fL MCH (27.0-33.0) pg MCHC (32.0-36.0) % RDW (11.8-14.1) % Plt Count (130-400) 10^3/uL MPV (8.0-11.0) fL Immature Gran % % Neutrophils % % Lymphocytes % % Monocytes % % Eosinophils % % Basophils % % Nucleated RBC % (0.0-0.3) % Absolute Neutrophils (1.2-6.7) 10^3/uL Absolute Lymphocytes (1.2-3.4) 10^3/uL Absolute Monocytes (0.1-0.8) 10^3/uL Absolute Eosinophils (0.0-0.7) 10^3/uL Absolute Basophils (0.0-0.2) 10^3/uL VBG Lactate (<or=2.0) mmol/L Sodium (136-145) mmol/L Potassium (3.5-5.1) mmol/L Chloride (98-107) mmol/L Carbon Dioxide (21.0-32.0) mmol/L Anion Gap (3-11) mmol/L BUN (7-18) mg/dL Creatinine (0.70-1.30) mg/dL Est GFR (CKD-EPI 2020) (mL/min/1.73m2) Glucose (74-106) mg/dL Calcium (8.5-10.1) mg/dL Magnesium (1.8-2.4) mg/dL Total Bilirubin (0.2-1.0) mg/dL AST (15-37) U/L ALT (16-63) U/L Alkaline Phosphatase (46-116) U/L Lactate Dehydrogenase (85-227) U/L Troponin I Cancelled Total Protein (6.4-8.2) g/dL Albumin (3.4-5.0) g/dL Lipase (<78) U/L Urine Color (Yellow) Urine Clarity (Clear) Urine pH (5-8) Ur Specific [place] (1.005-1.025) Urine Protein (Neg-Trace) mg/dL Urine Ketones (Negative) mg/dL Urine Blood (Negative) Urine Nitrite (Negative) Urine Bilirubin (Negative) Urine Urobilinogen (Up to 0.2) mg/dL Ur Leukocyte Esterase (Negative) Urine Glucose (Negative) mg/dL 12/26/24 12:41 Blood Culture - Pending Blood 12/26/24 12:41 Blood Culture - Pending Blood [id number] Documentation Fingerstick Glucose Start: 12/26/24 15:43 Freq: .Stat Status: Active Protocol: Activity Type Activity Date Activity User E-sign Co-sign Detail Recorded Client Recorded Date Recorded By Document 12/26/24 15:41 BKG DAEMON(3) [id number] 12/26/24 15:44 BKG DAEMON(4) Intake and Output - 24 Hour Total 12/26/24 10:44 thru 12/26/24 13:47 Intake Total 1000 Balance 1000 Weight 84.368 kg Intake: IV 1000 Falls Risk Assessment History of Falls No History 12/26/24 11:39 Contributing Factors No Factors 12/26/24 11:39 Ambulatory Aids Independent 12/26/24 11:39 Tubes/Lines None 12/26/24 11:39 Gait Evaluation No gait disturbance 12/26/24 11:39 Cognition No cognitive impairment 12/26/24 11:39 Fall Total Score 0 12/26/24 11:39 Level of Risk Standard/Low Risk 12/26/24 11:39 Problems Sepsis (Acute) H/O Whipple procedure (Acute) Cholangiocarcinoma (Acute) Intractable vomiting without nausea (Acute) Notes 12/26/24 15:45 Nursing Notes by Torri Taylor Nursing Note: Patient complained of an episode of vomiting, shaking for about 15 mins. Oral temp 99.3f and BGL 132. Provider notified Initialized on 12/26/24 15:45 - END OF NOTE 12/26/24 12:36 Nursing Notes by Torri Taylor Nursing Note: Unable to get a blood return from pt's PICC line. Pt has been receiving IV medications at home through PICC line. Pt stated there has been difficulty getting blood return from site. Spoke with provider about giving IV fluids through PICC, Provider ok with that. Initialized on 12/26/24 12:36 - END OF NOTE v v v v v v v v v Sending and/or Receiving Nurses: Please use comment section below to note any information pertinent to the patient hand-off not included above. Information / Comments: Pt arrived to unit with nursing at 1910, received tylenol for fever, 2L of IVF in ED. Upon transfer, pt alert, oriented, on protective precautions for leukopenia. VSS. Report received from:FRANCISCO Wild
[2024-12-26] MEDS: Normal Saline 1,000 ML 75 ML IV (20:18)
[2024-12-26] MEDS: VANCOMYCIN 2,000 MG in Normal Saline 500 ML 250 MG IVPB (21:27)
--- NOTE | 2024-12-26 22:44 | DI.VRAD_ITS ---
PROCEDURE INFORMATION: Exam: XR Chest Exam date and time: 12/26/2024 9:01 PM Age: 79 years old Clinical indication: Fever; Additional info: Fever, leukopenia, CA patient, looking for source TECHNIQUE: Imaging protocol: Radiologic exam of the chest. Views: 1 view. COMPARISON: CT ABDOMEN PELVIS W 12/26/2024 2:11 PM FINDINGS: Tubes, catheters and devices: Right-sided PICC line identified with its tip in the right atrium. Lungs: Unremarkable. No consolidation. Pleural spaces: Unremarkable. No pleural effusion. No pneumothorax. Heart/Mediastinum: Large hiatal hernia. Bones/joints: Unremarkable. IMPRESSION: 1. No acute infiltrates. 2. Hiatal hernia. Dictated and Authenticated by: Alec Chin MD. Orderin Kt Diana MD
[2024-12-26] MEDS: CEFEPIME 2 GM in Normal Saline 100 ML IVPB (23:49)
--- NOTE | 2024-12-27 | DI.RAD_ITS ---
Exam(s) RF SMALL BOWEL SERIES EXAM: RF SMALL BOWEL SERIES CLINICAL HISTORY: vomiting after whipple procedure TECHNIQUE: 2D and realtime digital imaging was performed. CONTRAST MATERIAL: Oral barium contrast was administered. COMPARISON: CT CT ABDOMEN PELVIS W from 12/26/2024 FINDINGS: Portable supine views were performed at 11 a.m. time when the patient began drinking the contrast was not documented. Small amount of contrast remains present within the stomach. Portion of the stomach is again noted to extend above the diaphragm. The registration rep contrast is within mid to distal small bowel as well as in the colon, to the level of the rectum. There is no evidence of obstruction. There is some contrast reflux into the biliary tree which is not dilated. IMPRESSION: No evidence of obstruction at the level of the hiatal hernia or at the stomach. No evidence of small-bowel or colonic obstruction. Patient is status post Whipple procedure in there is contrast extending into the biliary tree. RADIATION DOSE DELIVERED:
[2024-12-27 04:40] VITALS: BP 116/53; PULSE 91; RESP 17; TEMP 36.8; O2SAT 95
[2024-12-27 07:10] LABS: HCT 26.5 % (40.0-50.0); HGB 8.9 g/dL (13.5-17.5); MCH 28.6 pg (27.0-33.0); MCHC 33.6 % (32.0-36.0); MCV 85 fL (80-95); MPV 11.7 fL (8.0-11.0); Platelet Count 178 10^3/uL (130-400); RBC 3.11 10^6/uL (4.36-5.78); RDW 14.4 % (11.8-14.1); RDW-SD 44.7 fL; WBC 2.71 10^3/uL (4.4-10.8)
[2024-12-27 07:28] LABS: Anion Gap 9.0 mmol/L (3-11); BUN 14 mg/dL (7-18); CO2 23.0 mmol/L (21.0-32.0); Calcium 7.6 mg/dL (8.5-10.1); Chloride 107 mmol/L (98-107); Estimated GFR 90.58 (mL/min/1.73m2); Glucose 118 mg/dL (74-106); Magnesium 1.8 mg/dL (1.8-2.4); Potassium 3.8 mmol/L (3.5-5.1); Sodium 139 mmol/L (136-145)
[2024-12-27 07:34] LABS: Vancomycin, Random 13.5 ug/mL
[2024-12-27] MEDS: CEFEPIME 2 GM in Normal Saline 100 ML IVPB ×2 (08:34→16:50)
[2024-12-27] MEDS: Normal Saline Flush 10 ML SYR IVP ×2 (08:48→22:25)
[2024-12-27] MEDS: Metoclopramide 10 MG TAB PO (08:48)
--- NOTE | 2024-12-27 08:53 | W.PM.PROGNOT ---
Date of Service Date of service: 12/27/24 Time of Service: 08:53 Assessment and Plan Assessment and plan (1) Intractable vomiting without nausea: Status: Acute Assessment and plan: Awaiting studies ordered by Dr. Noyola for further evaluation to determine any limitations or causes of nausea and vomiting. Encouraged activity OOB and sitting in the chair Continue NPO Reviewed PA's note and I agree with he HPI, assessment and plan. Vomiting since october 2024 when he underwent whiple for cholangiocarcinoma. fluoro study completed today shows patent nonstenotic GJ and distal anastomoses, hepaticojej intact and patent also with contrast refluxing into biliary tree. No signs of obstruction or a clear cause for the vomiting. [place] considering a feeding jejunostomy on patient. Discussed with him and his partner - I recommend they [place] [facility] [place] would know best if this would be indicated at this time or not, and know best which technique for placement would be optimal. Enteral nutrition would be preferred over parenteral as long as gut is usable and unobstructed. more distal feeding into small bowel rather than feeding into stomach is preferred w his anatomy and with the constant vomiting. No indication for feeding tube urgently now, and it is in his benefit to discuss this with Dr Ricketts at length as she would be most knowledgable about appropriateness in his clinical case. TPN ordered as standard. pt has pics on his mobile phone of the tpn he has at home, this should be reviewed by the RD and considered. Signing off, will follow peripherally. Subjective Subjective Interval history since last seen: Noe denies any nausea at this moment. He denies any pain, SOB, fevers or chills at this time. Exam Const General: cooperative, healthy appearing and comfortable Orientation: alert and oriented x3 Resp Effort & Inspection: normal respiratory effort, no audible wheezes and no cough Objective Last Vital Signs Temp 36.8 C 12/27/24 04:40 Pulse 91 H 12/27/24 04:40 Resp 17 12/27/24 04:40 BP 116/53 L 12/27/24 04:40 Pulse Ox 95 12/27/24 04:40 Laboratory Results - last 24 hr 12/26/24 12/26/24 12/26/24 12:10 12:41 14:08 WBC 3.63 L RBC 3.82 L Hgb 10.4 L Hct 32.2 L MCV 84 MCH 27.2 MCHC 32.3 RDW 14.1 Plt Count 236 MPV 11.2 H Immature Gran % 0.8 Neutrophils % 81.6 Lymphocytes % 8.8 Monocytes % 8.5 Eosinophils % 0.0 Basophils % 0.3 Nucleated RBC % 0.0 Absolute Neutrophils 2.96 Absolute Lymphocytes 0.32 L Absolute Monocytes 0.31 Absolute Eosinophils 0.00 Absolute Basophils 0.01 VBG Lactate 1.6 Sodium 137 Potassium 3.8 Chloride 104 Carbon Dioxide 24.0 Anion Gap 9.0 BUN 23 H Creatinine 0.9 Est GFR (CKD-EPI 2020) 87.42 Glucose 151 H Calcium 8.3 L Magnesium 1.9 Total Bilirubin 0.5 AST 19 ALT 16 Alkaline Phosphatase 68 Lactate Dehydrogenase 181 Troponin I Cancelled 17 Total Protein 6.2 L Albumin 2.3 L Lipase 17 Urine Color Yellow Urine Clarity Clear Urine pH 7.0 Ur Specific [place] 1.025 Urine Protein Negative Urine Ketones Negative Urine Blood Negative Urine Nitrite Negative Urine Bilirubin Negative Urine Urobilinogen 1.0 H Ur Leukocyte Esterase Negative Urine Glucose Negative Random Vancomycin 12/26/24 12/27/24 14:10 06:15 WBC 2.71 L RBC 3.11 L Hgb 8.9 L Hct 26.5 L MCV 85 MCH 28.6 MCHC 33.6 RDW 14.4 H Plt Count 178 MPV 11.7 H Immature Gran % Neutrophils % Lymphocytes % Monocytes % Eosinophils % Basophils % Nucleated RBC % Absolute Neutrophils Absolute Lymphocytes Absolute Monocytes Absolute Eosinophils Absolute Basophils VBG Lactate Sodium 139 Potassium 3.8 Chloride 107 Carbon Dioxide 23.0 Anion Gap 9.0 BUN 14 Creatinine 0.8 Est GFR (CKD-EPI 2020) 90.58 Glucose 118 H Calcium 7.6 L Magnesium 1.8 Total Bilirubin AST ALT Alkaline Phosphatase Lactate Dehydrogenase Troponin I Cancelled Total Protein Albumin Lipase Urine Color Urine Clarity Urine pH Ur Specific [place] Urine Protein Urine Ketones Urine Blood Urine Nitrite Urine Bilirubin Urine Urobilinogen Ur Leukocyte Esterase Urine Glucose Random Vancomycin 13.5 Time Spent with Patient Time Spent with Patient: <25 minutes Time was spent: preparing to see the patient(eg.review tests), obtaining and/or reviewing separately otained hiistory and counseling the patient
[2024-12-27] MEDS: VANCOMYCIN/WATER (PEG) 1 GM/200 ML BAG IVPB ×2 (08:55→20:11)
[2024-12-27 11:30] VITALS: BP 121/82; PULSE 122; RESP 16; TEMP 37.5; O2SAT 95
[2024-12-27 12:06] VITALS: TEMP 37.5
[2024-12-27] MEDS: Acetaminophen 325 MG TAB 650 MG PO (12:06)
[2024-12-27] MEDS: Normal Saline 1,000 ML 75 ML IV (12:09)
--- NOTE | 2024-12-27 13:10 | PDOC.CMIN ---
Date of service: 12/27/24 Time of Service: 15:47 Care Management Initial Assmt Initial Assessment Reason for Hospitalization: Intractable Vomiting Functional Status/Living Situation Patient Presentation: Noe was lying in bed and visiting with his Sonya when CM met with him. He presented to the ED presenting with c/c of vomiting. Per report he underwent a Whipple surgery in October (). Nutrition, palliative, and surgical consults placed. Noe will have an x-ray today. Per report, Noe uses TPN chronically; [facility] is the supplier. Noe and Sonya were pleasant and open to conversation. They currently reside in the in-law apartment at their son?s home in [place], although they also maintain a residence in [place]. They report enjoying their time in [place]. Noe shared that he has four sons and three grandsons. He enjoys spending time outdoors and playing with his dog, Two Dot. He is independent at baseline. Noe is established with the palliative care team at [facility]. His , Sonya, is his primary support and states that she attends to his daily needs; Noe confirms this. They currently receive home health RN visits but do not utilize any other home health services. All home DME has been obtained through [employer], and they report feeling well-equipped at home. Noe states he would like to establish his oncology care at [facility] as it is closer to his current residence. CM will continue to follow. Town of Residence: [place] Resides with: Spouse Significant Other/Family: Local Natural Supports: Family Employment Status: Retired Instrumental Activities of Daily Living (ADLs): Independent Medications Medication Management: No Issues/Barriers identified Physical Functioning/Mobility Assistive Device: has a cane, walker, and wheelchair at home but doesnt not often use any of these. Advance Directives Advance Directives: Do you have an Advance Directive: Y 12/26/24, 12:[address] File [address] [facility]: N 12/26/24, 12:02 Date Asked 12/26/24 Today, 07:44 AD Date Reviewed COLST On File at [facility] COLST Date Scanned Code Status Resuscitation Status DNR/DNI Portal Pt does not currently have a portal and education provided: Yes Insurance Coverage/Financial Issues Insurance: CBA - [id number] Medicare Part A & B - [id number] Care Team Visit Care Team Role Provider Type Vladislav Ramirez MD MD [facility] STAFF PHYSICIAN Rebecca Mane Primary Care Provider NON-[facility] STAFF PHYSICIAN Franca Pink, MARIO, [facility] Other Providers LEAN CONSULTANT Javier Huntley RDN Other Providers LEAN CONSULTANT Ayo Noyola MD Other Providers [facility] STAFF PHYSICIAN CITLALLI Nix Emergency Provider PHYSICIANS TANK WAGON OPERATOR Lebron Meraz MD Admit Provider [facility] STAFF PHYSICIAN Attending Provider Discharge Potential Discharge Needs: PCP F/U Appt Anticipated Barriers to Discharge: None Identified Patient/Family Education Needs: Review discharge instructions, discuss Ask Me Three Transportation: Private vehicle Plan: Anticipate Noe will be discharged home with a resumption of RN, once medically ready. It is recommended he follow up with his community providers, palliative care, and discharge plan of care. He will be transported home via private vehicle. CM will continue to follow. Social Determinants of Health Screening Social Determinants of health last assessed in clinic: 12/27/24 Will the Patient Participate in the Screening?: Yes Do you worry about having a steady place to live?: no Problems where you live: no known problems In the past 12 months, have you had to go without electric, gas, oil or water in your home?: no 1. Within the past 12 months, we worried whether our food would run out before we got money to buy more.: Never true 2. Within the past 12 months, the food we bought just didn't last and we didn't have money to get more.: Never true Has lack of transportation kept you from medical appointments or from doing things needed for daily living?: no Has anyone in your life made you feel unsafe or unsupported?: no How hard is it for you to pay for the very basics like food, housing, medical care, and heating? Would you say it is:: Not hard at all Do you want help finding or keeping work or a job?: I do not need or want help If for any reason you need help with day-to-day activities such as bathing, preparing meals, shopping, managing finances, etc., do you get the help you need?: I don?t need any help How often do you feel lonely or isolated from those around you?: Never Do you speak a language other than Korean at home?: No Does the patient want assistance with any of the above?: No PFSH All Active Problems (Updated 12/26/24 @ 19:32 by YAA SUAZO) Sepsis (Acute) H/O Whipple procedure (Acute) Cholangiocarcinoma (Acute) Intractable vomiting without nausea (Acute) Intractable vomiting (Acute) Vomiting (Acute) Social History Smoking/Tobacco Use Status: Never Smoking risk assessment performed?: Yes Alcohol Intake: never Drug use: Never Substance use type: does not use Housing: apartment Do you feel safe at home: Yes Do you feel safe in your relationship?: Yes Readmission Within the Past 30 Days Yes or No: No
[2024-12-27] MEDS: Ondansetron 4 MG/2 ML VIAL IVP ×2 (13:21→22:24)
[2024-12-27] MEDS: Barium Sulfate 60% W/V 355 ML BTL PO (14:35)
--- NOTE | 2024-12-27 14:51 | NUR.NOTE ---
Nursing Note: Right upper arm PICC inserted prior to admission. Per Pt , the PICC line dressing was changed last WednesdayDec 22 at home. He reports he was using the line for TPN. PICC line dressing changed today per Hospital policy.
[2024-12-27 15:20] VITALS: BP 107/68; PULSE 79; RESP 16; TEMP 37.2; O2SAT 97
--- NOTE | 2024-12-27 16:16 | NS.NUTBLAN_ITS ---
Date of service: 12/27/24 Time of Service: 16:17 Nutritional Consult ASSESSMENT: Mr. Syed is s/p whipple with intractable n/v on home TPN. He is 177.8 cm and 85.3 kg. BMI is 27 kg/m2 which is WNL for his age. Estimated energy needs are 5666-6915 kcal/day (REE x 1.1) Estimated protein needs are 85 to 100 g/day (1.0 to 1.2 g/kg/day) Estimated fluid needs are 2000 ml/day (30 ml/kg/day) NUTRITIONAL DIAGNOSIS: Inability to take oral food and fluids related to intractable nausea and vomiting. INTERVENTION: Mr. Syed was on TPN at home. He is well nourished as he has been getting ad equate calories and his weight is stable and WNL. Would recommend the following TPN solution to meet his estimated nutritional needs. 2.0 L D10 AA 4.25 and 250 ml/day of 20% lipids to run at 83.3 ml/hour MONITORING AND EVALUATION: Will monitor weight, labs, and ability to tolerate any PO intake. Will evaluate nutrition care plan ongoing and adjust as needed. Thank you for this consult. Time Spent in Nutritional Counseling and Treatment: 30 minutes
--- NOTE | 2024-12-27 16:22 | W.PM.PROGNOT ---
Date of Service Date of service: 12/27/24 Time of Service: 15:00 Assessment and Plan Assessment and plan (1) Intractable vomiting without nausea: Status: Acute Assessment and plan: - Unclear cause at this time - Patient did have Whipple procedure October 17, 2024 and has had spontaneous vomiting without nausea since that time - Attempts were made to transfer patient to [facility] where procedure was done but they stated they would place patient on 48-hour list but are unable to accept in transfer at this time due to capacity - Discussed case with [facility] general surgeon Dr. Noyola who recommended trialing different antiemetics, making patient n.p.o. for upper endoscopy tomorrow 12/27/2024 -As needed metoclopramide, and Ativan for vomiting -Patient's surgeon Dr. Ricketts gracefully called and give additional information on the patient. She states she has been on multiple antiemetics and promotility agents without improvement. She also stated that she has been closely following his electrolytes while on TPN and they have all been within normal limits - Upon further questioning of the patient, the real reason he came in is because he vomited 5 times last night and developed a fever, which concerned him. He understands and there may not be a fix for his more chronic vomiting and that it was slowly improving, but given the fever and significant increase in amount of vomiting episodes on the night of 12/25/2024 prompted him to come to the emergency department. -It is possible that increased episodes of vomiting experienced at night prior to arrival as well as fever may be secondary to a viral gastritis, though out of an abundance of caution we will continue with plan to be further evaluated by general surgeon Dr. Noyola, and treat empirically for bacterial infection/sepsis as noted below -Will continue p.o. erythromycin, IV metoclopramide, IV Zofran, and IV Ativan for vomiting - Appreciate nutrition consultation for ongoing TPN (2) Sepsis: Status: Acute Assessment and plan: - Patient meets sepsis criteria at this time with a heart rate of 100, temperature of 101.6 ?F, and leukopenia with a white blood cell count of 3.6, though no source of infection is noted at this time - Given that patient has cholangiosarcoma status post Whipple, will initiate vancomycin and cefepime - Blood cultures were already drawn in the emergency department, will follow-up - Will also order chest x-ray and head CT to look for potential source of infection as CT abdomen pelvis was without potential source (3) Cholangiocarcinoma: Status: Acute Assessment and plan: - Unclear stage at this time - Patient has not had in person follow-up with oncology since his procedure (4) H/O Whipple procedure: Status: Acute Assessment and plan: - Procedure done October 17, 2024 as noted above - Cannot rule out post operative or intraoperative complications resulting in intractable vomiting as noted above Subjective Subjective Interval history since last seen: Mr. Syed had no vomiting overnight. He is tolerating some bites of food. at bedside Exam Narrative Exam Narrative: General: This is a very pleasant man in no acute distress HEENT: Normocephalic, atraumatic CV: RRR Resp: CTAB Abd: soft, NTND, surgical scar c/d/i MSK: voluntary motion x4 Neuro: awake, alert, no focal deficits Objective Last Vital Signs Temp 37.2 C 12/27/24 15:20 Pulse 79 12/27/24 15:20 Resp 16 12/27/24 15:20 BP 107/68 12/27/24 15:20 Pulse Ox 97 12/27/24 15:20 Laboratory Results - last 24 hr 12/27/24 06:15 WBC 2.71 L RBC 3.11 L Hgb 8.9 L Hct 26.5 L MCV 85 MCH 28.6 MCHC 33.6 RDW 14.4 H Plt Count 178 MPV 11.7 H Sodium 139 Potassium 3.8 Chloride 107 Carbon Dioxide 23.0 Anion Gap 9.0 BUN 14 Creatinine 0.8 Est GFR (CKD-EPI 2020) 90.58 Glucose 118 H Calcium 7.6 L Magnesium 1.8 Random Vancomycin 13.5 Time Spent with Patient Time Spent with Patient: 35-49 minutes Time was spent: preparing to see the patient(eg.review tests), obtaining and/or reviewing separately otained hiistory, ordering medications,tests, procedures, referring, communicating with other health assistant child care teacher, indepentently interpreting results, counseling the patient and care coordination
--- NOTE | 2024-12-27 16:52 | CHAPLAIN ---
I met Noe in the ED yesterday. He told the ED CHANGE MANAGEMENT DIRECTOR caring for him that his is agnostic, but welcomed a stone setter metal optical frames visit. He is originally from [place] but has been in [place] for over 40 years, currently living in the [facility]. This summer he has been staying next door to his son on [address] and has enjoyed it there. He was admitted with intractable vomiting and is also being treated for cancer. Yesterday his had questions about the difference between palliative care and hospice. We talked about bit about not being in control of things and how that can be disconcerting, and today talked about how medicine is not an exact science at all. Noe said he read recently that with all we know about how bodies work, we really only know 25 percent. Noe is being followed by [facility] Palliative [facility]. They aren't sure if they're going to stay in our area or head back to [place]. 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 He is very pleasant and easily engages in a conversation. He's waiting for some test results and expects to meet with the hospitalist this afternoon, and his will be here for the meeting as well.
[2024-12-27 20:00] VITALS: BP 118/70; PULSE 86; RESP 16; TEMP 37.1; O2SAT 97
[2024-12-27 21:21] LABS: Vancomycin, Trough 24.6 ug/mL (10.0-20.0)
[2024-12-28] MEDS: CEFEPIME 2 GM in Normal Saline 100 ML IVPB ×3 (01:00→16:17)
[2024-12-28] MEDS: Normal Saline 1,000 ML 75 ML IV ×2 (03:32→17:18)
[2024-12-28 03:42] VITALS: BP 100/64; PULSE 78; RESP 16; TEMP 37.4; O2SAT 97
[2024-12-28] MEDS: Metoclopramide 10 MG TAB PO (08:08)
[2024-12-28] MEDS: Ondansetron 4 MG/2 ML VIAL IVP (08:09)
[2024-12-28 08:12] VITALS: BP 96/64; PULSE 77; RESP 16; TEMP 36.9; O2SAT 97
[2024-12-28] MEDS: Normal Saline Flush 10 ML SYR IVP (08:18)
[2024-12-28] MEDS: VANCOMYCIN/WATER (PEG) 1 GM/200 ML BAG IVPB ×2 (08:45→20:56)
--- NOTE | 2024-12-28 08:57 | PDOC.CMPRO ---
Date of service: 12/28/24 Time of Service: 16:07 Care Management Progress Note Progress Note Text Progress Note Text: Noe was lying in bed and visiting with his when CM met with him. Noe has not vomited in 36 hours and reports he has been able to eat some foods; He is happy he is able to do this. Per [facility], Noe will need new orders for TPN, and his IV medications; At their request, clinical information faxed. Per report, TPN orders may change vs potentially achieve a level of oral nutrition that he may be able to stop TPN. Per report, anticipated discharge will be following the weekend. CM will continue to follow. Discharge Potential Discharge Needs: Consult Consult Services Needed: Palliative and PCP F/U Appt Anticipated Barriers to Discharge: None Identified Patient/Family Education Needs: Review discharge instructions, discuss Ask Me Three Transportation: Private vehicle Plan: Anticipate Noe will be discharged home with a resumption of RN, once medically ready. It is recommended he follow up with his community providers, palliative care, and discharge plan of care. He will be transported home via private vehicle. CM will continue to follow. Social Determinants of Health Screening Social Determinants of health last assessed in clinic: 12/28/24 Will the Patient Participate in the Screening?: Yes Do you worry about having a steady place to live?: no Problems where you live: no known problems In the past 12 months, have you had to go without electric, gas, oil or water in your home?: no 1. Within the past 12 months, we worried whether our food would run out before we got money to buy more.: Never true 2. Within the past 12 months, the food we bought just didn't last and we didn't have money to get more.: Never true Has lack of transportation kept you from medical appointments or from doing things needed for daily living?: no Has anyone in your life made you feel unsafe or unsupported?: no How hard is it for you to pay for the very basics like food, housing, medical care, and heating? Would you say it is:: Not hard at all Do you want help finding or keeping work or a job?: I do not need or want help If for any reason you need help with day-to-day activities such as bathing, preparing meals, shopping, managing finances, etc., do you get the help you need?: I don?t need any help How often do you feel lonely or isolated from those around you?: Never Do you speak a language other than Djiboutian at home?: No Does the patient want assistance with any of the above?: No
--- NOTE | 2024-12-28 10:38 | W.PM.PROGNOT ---
Date of Service Date of service: 12/27/24 Time of Service: 08:53 Assessment and Plan Assessment and plan (1) Intractable vomiting without nausea: Status: Acute Assessment and plan: Gut is usable but he is unable to intake orally to meet his needs. Feeding tube placement should come from his surgical oncologist at [facility] but should be considered. Getting him to be able to eat is the current goal, this may be accomplished by preventing vomiting episodes and increasing his interest in foods. Start by scheduling zofran odt. He does not have nausea but zofran can help reduce vomiting as well. Dose scheduled q6h. If this controls emesis then liberalizing oral intake and perhaps adding megace would be advised. This has worked well for patients I have cared for with severe nausea/emesis precluding oral intake of food without clear cause or obstruction in the digestive tract. Subjective Subjective Interval history since last seen: No vomiting episodes overnight. Ate renetta oatmeal this AM and is anxious about it causing some vomiting later. he clarifies with me he does NOT have nausea, he has vomiting that comes on rapidly. No preceding nausea symptom or warning. Appetite is poor and interest in food is poor. Tastes are different in his mouth since surgery in october. He is on TPN. Exam Narrative Exam Narrative: awake, NAD eomi, MMM normal resp effort abd nondistended. healing midline incision in good condition Const General: cooperative, healthy appearing and comfortable Orientation: alert and oriented x3 Resp Effort & Inspection: normal respiratory effort, no audible wheezes and no cough Objective Last Vital Signs Temp 98.4 F 12/28/24 08:12 Pulse 77 12/28/24 08:12 Resp 16 12/28/24 08:12 BP 96/64 L 12/28/24 08:12 Pulse Ox 97 12/28/24 08:12 Laboratory Results - last 24 hr 12/27/24 20:45 Vancomycin Trough 24.6 H* Time Spent with Patient Time Spent with Patient: 25-34 minutes Time was spent: preparing to see the patient(eg.review tests), ordering medications,tests, procedures and counseling the patient
[2024-12-28 11:00] VITALS: BP 115/59; PULSE 74; RESP 16; TEMP 36.9; O2SAT 97
[2024-12-28] MEDS: Ondansetron O.D.T. 4 MG TABEF PO ×2 (14:06→20:55)
[2024-12-28] MEDS: LORazepam 1 MG TAB PO (16:44)
[2024-12-28 19:18] LABS: Vancomycin, Trough 13.5 ug/mL (10.0-20.0)
--- NOTE | 2024-12-28 20:18 | PGE_ITS ---
Date of Service Date of service: 12/28/24 Time of Service: 13:00 Assessment and Plan Assessment and plan (1) Intractable vomiting without nausea: Status: Acute Assessment and plan: - Unclear cause at this time - Patient did have Whipple procedure October 17, 2024 and has had spontaneous vomiting without nausea since that time - Attempts were made to transfer patient to [facility] where procedure was done but they stated they would place patient on 48-hour list but are unable to accept in transfer at this time due to capacity - Discussed case with [facility] general surgeon Dr. Noyola who recommended trialing different antiemetics, making patient n.p.o. for upper endoscopy tomorrow 12/27/2024 -As needed metoclopramide, and Ativan for vomiting -Patient's surgeon Dr. Ricketts gracefully called and give additional information on the patient. She states she has been on multiple antiemetics and promotility agents without improvement. She also stated that she has been closely following his electrolytes while on TPN and they have all been within normal limits - Upon further questioning of the patient, the real reason he came in is because he vomited 5 times last night and developed a fever, which concerned him. He understands and there may not be a fix for his more chronic vomiting and that it was slowly improving, but given the fever and significant increase in amount of vomiting episodes on the night of 12/25/2024 prompted him to come to the emergency department. -It is possible that increased episodes of vomiting experienced at night prior to arrival as well as fever may be secondary to a viral gastritis, though out of an abundance of caution we will continue with plan to be further evaluated by general surgeon Dr. Noyola, and treat empirically for bacterial infection/sepsis as noted below -Will continue p.o. erythromycin, IV metoclopramide, IV Zofran, and IV Ativan for vomiting - Appreciate nutrition consultation for ongoing TPN (2) Sepsis: Status: Acute Assessment and plan: - Patient meets sepsis criteria at this time with a heart rate of 100, temperature of 101.6 ?F, and leukopenia with a white blood cell count of 3.6, though no source of infection is noted at this time - Given that patient has cholangiosarcoma status post Whipple, will initiate vancomycin and cefepime - Blood cultures were already drawn in the emergency department, will follow-up - Will also order chest x-ray and head CT to look for potential source of infection as CT abdomen pelvis was without potential source (3) Cholangiocarcinoma: Status: Acute Assessment and plan: - Unclear stage at this time - Patient has not had in person follow-up with oncology since his procedure (4) H/O Whipple procedure: Status: Acute Assessment and plan: - Procedure done October 17, 2024 as noted above - Cannot rule out post operative or intraoperative complications resulting in intractable vomiting as noted above Subjective Subjective Interval history since last seen: Mr. Syed made it to mid-afternoon without vomiting, unfortunately with 50cc emesis. He continues to be happy that he is not vomiting all the time as he has done since his Whipple. Exam Narrative Exam Narrative: General: This is a very pleasant man in no acute distress HEENT: Normocephalic, atraumatic CV: RRR Resp: CTAB Abd: soft, NTND, surgical scar c/d/i MSK: voluntary motion x4 Neuro: awake, alert, no focal deficits Objective Last Vital Signs Temp 36.9 C 12/28/24 11:00 Pulse 74 12/28/24 11:00 Resp 16 12/28/24 11:00 BP 115/59 L 12/28/24 11:00 Pulse Ox 97 12/28/24 11:00 Laboratory Results - last 24 hr 12/27/24 12/28/24 20:45 18:50 Vancomycin Trough 24.6 H* 13.5 Time Spent with Patient Time Spent with Patient: 25-34 minutes Time was spent: preparing to see the patient(eg.review tests), obtaining and/or reviewing separately otained hiistory, ordering medications,tests, procedures, referring, communicating with other health child daycare worker, indepentently interpreting results, counseling the patient and care coordination
[2024-12-28 20:33] VITALS: BP 113/59; PULSE 77; RESP 14; TEMP 37; O2SAT 96
[2024-12-29] MEDS: CEFEPIME 2 GM in Normal Saline 100 ML IVPB ×4 (00:03→23:42)
[2024-12-29] MEDS: Metoclopramide 10 MG TAB PO ×5 (00:04→21:14)
[2024-12-29] MEDS: Normal Saline 1,000 ML 75 ML IV ×2 (07:49→21:14)
[2024-12-29 07:52] VITALS: BP 127/69; PULSE 73; RESP 16; TEMP 36.5; O2SAT 97
[2024-12-29] MEDS: Normal Saline Flush 10 ML SYR IVP ×2 (08:07→20:07)
[2024-12-29] MEDS: Ondansetron O.D.T. 4 MG TABEF PO ×3 (08:07→20:03)
[2024-12-29] MEDS: VANCOMYCIN/WATER (PEG) 1 GM/200 ML BAG IVPB ×2 (09:09→20:04)
--- NOTE | 2024-12-29 09:24 | PDOC.CMPRO ---
Date of service: 12/29/24 Time of Service: 09:25 Care Management Progress Note Discharge Potential Discharge Needs: Consult Consult Services Needed: Nutrition and Palliative and PCP F/U Appt Anticipated Barriers to Discharge: None Identified Patient/Family Education Needs: Review discharge instructions, discuss Ask Me Three Transportation: Private vehicle Plan: Anticipate Noe will be discharged home with a resumption of HH RN, once medically ready. It is recommended he follow up with his community providers, palliative care, and discharge plan of care. He will be transported home via private vehicle. He may need a resumption of his TPN through [facility]; will require resumption of other IV medication as well. CM will continue to follow. Social Determinants of Health Screening Social Determinants of health last assessed in clinic: 12/28/24 Will the Patient Participate in the Screening?: Yes Do you worry about having a steady place to live?: no Problems where you live: no known problems In the past 12 months, have you had to go without electric, gas, oil or water in your home?: no Has lack of transportation kept you from medical appointments or from doing things needed for daily living?: no Has anyone in your life made you feel unsafe or unsupported?: no How hard is it for you to pay for the very basics like food, housing, medical care, and heating? Would you say it is:: Not hard at all Do you want help finding or keeping work or a job?: I do not need or want help If for any reason you need help with day-to-day activities such as bathing, preparing meals, shopping, managing finances, etc., do you get the help you need?: I don?t need any help How often do you feel lonely or isolated from those around you?: Never Do you speak a language other than Korean at home?: No Does the patient want assistance with any of the above?: No
--- NOTE | 2024-12-29 10:33 | PGE_ITS ---
Date of Service Date of service: 12/29/24 Time of Service: 10:33 Assessment and Plan Assessment and plan (1) Intractable vomiting without nausea: Status: Acute Assessment and plan: Patient is a 79-year-old male who is status post Whipple procedure in October. He presented to the hospital with ongoing vomiting. A fluoroscopy study was completed which showed no signs of obstruction or clear cause for the vomiting. He has continued Clinimix during admission. Enteral nutrition would be preferred over parenteral as much as possible. He has had some improvement in his vomiting and is able to tolerate small amount of p.o. intake. Would recommend ongoing scheduled Zofran as this seems to improve his symptoms as well as frequent, small meals as tolerated. General surgery will follow peripherally. He should follow up as an outpatient with his primary surgeon to discuss ongoing vomitting and other potential options for maintaining nutrition. Subjective Subjective Interval history since last seen: He states he is doing better this morning. He notes that he only had one episode of small volume emesis yesterday. He states he was able to eat a few meals without difficulty including oatmeal, rice, boost supplement. He notes he tolerated breakfast this morning without diffuculty. He denies nausea, abdominal pain, fevers, chills. Exam Narrative Exam Narrative: General: Well appearing, no acute distress. Skin: Good turgor, no visible rashes or lesion HEENT: Normocephalic, atraumatic, no visible masses CV: Regular rate Lungs: Bilateral equal chest rise, non-labored breathing. Abdomen: Non-distended Extremities: Warm, well perfused Neurologic: No focal deficits Psychiatric: Alert and oriented, normal mood and affect Const General: cooperative, comfortable and no acute distress [facility] Head: normal to inspection and atraumatic Ears: external ears normal Mouth: moist mucous membranes Eyes General: appearance normal, both eyes and all related structures Neck Neck: normal visual inspection and trachea midline Chest Chest: normal inspection of the chest Resp Effort & Inspection: normal respiratory effort Cardio Rate: regular rate GI Inspection: normal to inspection and non-distended Palpation: soft and nontender Skin General skin exam: no rashes or lesions noted Neuro General: patient alert, patient awake and moves all extremities Psych Appearance: grossly normal Mood: congruent mood Affect: normal affect Objective Last Vital Signs Temp 36.5 C 12/29/24 07:52 Pulse 73 12/29/24 07:52 Resp 16 12/29/24 07:52 BP 127/69 12/29/24 07:52 Pulse Ox 97 12/29/24 07:52 Laboratory Results - last 24 hr 12/28/24 18:50 Vancomycin Trough 13.5 Time Spent with Patient Time Spent with Patient: <25 minutes Time was spent: preparing to see the patient(eg.review tests), obtaining and/or reviewing separately otained hiistory, referring, communicating with other health healthcare corporate account director and counseling the patient
--- NOTE | 2024-12-29 11:46 | CMDISCH_ITS ---
Date of service: 01/01/25 Time of Service: 11:31 LACE Index Scoring Tool Questions: Length of Stay (in days): 4 - 6 Was the patient admitted via the E.D.?: Yes E.D. Visits: 1 Answers: Total Score: 8 Risk of Readmission: Low Risk Care Management Discharge Plan Reason for Hospitalization: Intractable vomiting Discharge Plan: Noe will be discharged home with a resumption of RN as well as TPN and home IV medications that are supplied through [facility]. [facility] TNP, and IV medications coordinated by CM and provider; All requested documentation sent to the supplier. Noe states he has 2 bags of TPN at his house currently. RYAN will have additional TPN delivered by end of day today. It is recommended he follow up with his community providers, palliative care, and discharge plan of care; Local PCP list given to the patient. He will be transported home via private vehicle by his . Patient/Family Education Needs: Review of discharge instructions, activity, limitation, and plan of care. Discuss ask me three.
[2024-12-29 11:47] VITALS: BP 118/81; PULSE 73; RESP 17; TEMP 36.5; O2SAT 97
--- NOTE | 2024-12-29 14:06 | PDOC.CMPRO ---
Date of service: 12/29/24 Time of Service: 14:06 Care Management Progress Note Progress Note Text Progress Note Text: Noe was visiting with his when CM met with him. Per report, anticipated d/c date is Wednesday; Noe is agreeable to this. TPN and IV medication orders are set up to resume with [facility]. Per report, it is anticipated he will require less TPN and intake more nutrition orally. Noe is interested in establishing a PCP in the local area; CM provided a list of local PCP to Noe. CM will continue to follow and support Noe with his discharge planning needs. Discharge Potential Discharge Needs: PCP F/U Appt Anticipated Barriers to Discharge: None Identified Patient/Family Education Needs: Review discharge instructions, discuss Ask Me Three Transportation: Private vehicle Plan: Anticipate Noe will be discharged home with a resumption of RN, once medically ready. It is recommended he follow up with his community providers, palliative care, and discharge plan of care. He will be transported home via private vehicle. CM will continue to follow. Social Determinants of Health Screening Social Determinants of health last assessed in clinic: 12/29/24 Will the Patient Participate in the Screening?: Yes Do you worry about having a steady place to live?: no Problems where you live: no known problems In the past 12 months, have you had to go without electric, gas, oil or water in your home?: no 1. Within the past 12 months, we worried whether our food would run out before we got money to buy more.: Never true 2. Within the past 12 months, the food we bought just didn't last and we didn't have money to get more.: Never true Has lack of transportation kept you from medical appointments or from doing things needed for daily living?: no Has anyone in your life made you feel unsafe or unsupported?: no How hard is it for you to pay for the very basics like food, housing, medical care, and heating? Would you say it is:: Not hard at all Do you want help finding or keeping work or a job?: I do not need or want help If for any reason you need help with day-to-day activities such as bathing, preparing meals, shopping, managing finances, etc., do you get the help you need?: I don?t need any help How often do you feel lonely or isolated from those around you?: Never Do you speak a language other than [place] Citizen at home?: No Does the patient want assistance with any of the above?: No
--- NOTE | 2024-12-29 15:08 | CHAPLAIN ---
Noe said he had just spoken with Dr. Ramirez and they made plans for Noe to remain here for the weekend and see if he can get of the TPN before being discharged. He is currently staying near his son at a place on [facility]. Noe hasn't vomited in a couple of days and is eating some food, other than the TPN. His Meliza was on the phone with him when I stopped in and he invited me to join their conversation. Meliza said she had a difficult day yesterday and went shopping to distract herself, and even exploring a new grocery store was helpful. They live in [place], where they met 20 years ago, but plan to stay at [facility] indefinetly. They both have kids from previous marriages, and have been together more than 20 years. They are very open in their conversations with each other in talking about Noe's prognosis and acknowledge that Noe has been told he has about a year left to live. Meliza said that they want to spend as much time together as possible, but she understands Noe needing to be in the hospital for now, and wants him to be comfortable and hopefully off the TPN. We talked about anticipatory grief, identifying what brings them comfort, strength, and leandro (which is being together). Noe is appreciative of being at [facility] rather than [facility] as he's been able to have the same doctors and nurses during his stay.
[2024-12-29 15:30] VITALS: BP 132/64; PULSE 77; TEMP 36.6; O2SAT 98
--- NOTE | 2024-12-29 17:26 | W.PM.PROGNOT ---
Date of Service Date of service: 12/29/24 Time of Service: 08:00 Assessment and Plan Assessment and plan (1) Intractable vomiting without nausea: Status: Acute Assessment and plan: Last episode of vomiting Dec 28 afternoon He is tolerating more PO intake Will try to increase PO intake and decrease TPN over the weekend with the intent to discharge off TPN. - Unclear cause at this time - Patient did have Whipple procedure October 17, 2024 and has had spontaneous vomiting without nausea since that time - Attempts were made to transfer patient to [facility] where procedure was done but they stated they would place patient on 48-hour list but are unable to accept in transfer at this time due to capacity - Discussed case with [facility] general surgeon Dr. Noyola who recommended trialing different antiemetics, making patient n.p.o. for upper endoscopy tomorrow 12/27/2024 -As needed metoclopramide, and Ativan for vomiting -Patient's surgeon Dr. Ricketts gracefully called and give additional information on the patient. She states she has been on multiple antiemetics and promotility agents without improvement. She also stated that she has been closely following his electrolytes while on TPN and they have all been within normal limits - Upon further questioning of the patient, the real reason he came in is because he vomited 5 times last night and developed a fever, which concerned him. He understands and there may not be a fix for his more chronic vomiting and that it was slowly improving, but given the fever and significant increase in amount of vomiting episodes on the night of 12/25/2024 prompted him to come to the emergency department. -It is possible that increased episodes of vomiting experienced at night prior to arrival as well as fever may be secondary to a viral gastritis, though out of an abundance of caution we will continue with plan to be further evaluated by general surgeon Dr. Noyola, and treat empirically for bacterial infection/sepsis as noted below -Will continue p.o. erythromycin, IV metoclopramide, IV Zofran, and IV Ativan for vomiting - Appreciate nutrition consultation for ongoing TPN Dec 29: plan is to continue working on PO intake and to taper down TPN, with the goal to make progress toward stopping TPN. (2) Sepsis: Status: Resolved Assessment and plan: - Patient meets sepsis criteria at this time with a heart rate of 100, temperature of 101.6 ?F, and leukopenia with a white blood cell count of 3.6, though no source of infection is noted at this time - Given that patient has cholangiosarcoma status post Whipple, will initiate vancomycin and cefepime - Blood cultures were already drawn in the emergency department, will follow-up - Will also order chest x-ray and head CT to look for potential source of infection as CT abdomen pelvis was without potential source (3) Cholangiocarcinoma: Status: Acute Assessment and plan: - Unclear stage at this time - Patient has not had in person follow-up with oncology since his procedure (4) H/O Whipple procedure: Status: Acute Assessment and plan: - Procedure done October 17, 2024 as noted above - Cannot rule out post operative or intraoperative complications resulting in intractable vomiting as noted above Subjective Subjective Interval history since last seen: Mr. Syed had no emesis yesterday and none so far today. He is eating more varieties and textures without nausea. Some afternoon nausea without vomiting. Exam Narrative Exam Narrative: General: This is a very pleasant man in no acute distress HEENT: Normocephalic, atraumatic CV: RRR Resp: CTAB Abd: soft, NTND, surgical scar c/d/i MSK: voluntary motion x4 Neuro: awake, alert, no focal deficits Objective Last Vital Signs Temp 36.6 C 12/29/24 15:30 Pulse 77 12/29/24 15:30 Resp 17 12/29/24 11:47 BP 132/64 12/29/24 15:30 Pulse Ox 98 12/29/24 15:30 Laboratory Results - last 24 hr 12/28/24 18:50 Vancomycin Trough 13.5 Time Spent with Patient Time Spent with Patient: 35-49 minutes Time was spent: preparing to see the patient(eg.review tests), obtaining and/or reviewing separately otained hiistory, ordering medications,tests, procedures, referring, communicating with other health sub acute care nurse, indepentently interpreting results, counseling the patient and care coordination
[2024-12-29 19:38] VITALS: BP 118/60; PULSE 78; RESP 14; TEMP 36.7; O2SAT 96
[2024-12-29 23:48] VITALS: BP 133/74; PULSE 81; RESP 20; TEMP 36.8; O2SAT 97
[2024-12-30 03:19] VITALS: BP 119/56; PULSE 76; RESP 16; TEMP 36.7; O2SAT 97
[2024-12-30] MEDS: Ondansetron O.D.T. 4 MG TABEF PO ×4 (03:22→19:38)
[2024-12-30] MEDS: VANCOMYCIN/WATER (PEG) 1 GM/200 ML BAG IVPB ×2 (08:00→19:38)
[2024-12-30 08:11] VITALS: BP 122/111; PULSE 80; RESP 16; TEMP 36.8; O2SAT 97
[2024-12-30] MEDS: Metoclopramide 10 MG TAB PO ×4 (08:56→21:33)
[2024-12-30] MEDS: CEFEPIME 2 GM in Normal Saline 100 ML IVPB ×3 (08:57→23:11)
[2024-12-30] MEDS: Polyethylene Glycol 3350 17 GM PACKET PO (09:18)
[2024-12-30 11:05] VITALS: BP 127/70; PULSE 76; RESP 16; TEMP 36.7; O2SAT 97
[2024-12-30] MEDS: Normal Saline 1,000 ML 75 ML IV (13:04)
[2024-12-30 14:30] LABS: Abs Immature Grans 0.02 10^3/uL (0.0-0.06); HCT 26.4 % (40.0-50.0); HGB 8.7 g/dL (13.5-17.5); Immature Grans % 0.4 %; MCH 28.3 pg (27.0-33.0); MCHC 33.0 % (32.0-36.0); MCV 86 fL (80-95); MPV 10.8 fL (8.0-11.0); Platelet Count 175 10^3/uL (130-400); RBC 3.07 10^6/uL (4.36-5.78); RDW 14.2 % (11.8-14.1); RDW-SD 44.2 fL; WBC 5.27 10^3/uL (4.4-10.8)
[2024-12-30 14:53] LABS: ALT 34 U/L (16-63); AST 29 U/L (15-37); Albumin 2.0 g/dL (3.4-5.0); Alkaline Phosphatase 62 U/L (46-116); Anion Gap 8.8 mmol/L (3-11); BUN 13 mg/dL (7-18); Bilirubin, Total 0.2 mg/dL (0.2-1.0); CO2 20.2 mmol/L (21.0-32.0); Calcium 8.1 mg/dL (8.5-10.1); Chloride 111 mmol/L (98-107); Estimated GFR 90.58 (mL/min/1.73m2); Glucose 136 mg/dL (74-106); Magnesium 1.7 mg/dL (1.8-2.4); Potassium 3.5 mmol/L (3.5-5.1); Sodium 140 mmol/L (136-145); Total Protein 5.8 g/dL (6.4-8.2)
[2024-12-30 15:10] VITALS: BP 117/58; PULSE 76; RESP 16; TEMP 36.8; O2SAT 98
--- NOTE | 2024-12-30 19:19 | W.PM.PROGNOT ---
Date of Service Date of service: 12/30/24 Time of Service: 08:00 Assessment and Plan Assessment and plan (1) Intractable vomiting without nausea: Status: Acute Assessment and plan: Last episode of vomiting Dec 28 afternoon He is tolerating more PO intake Will try to increase PO intake and decrease TPN over the weekend with the intent to discharge off TPN. - Unclear cause at this time - Patient did have Whipple procedure October 17, 2024 and has had spontaneous vomiting without nausea since that time - Attempts were made to transfer patient to [facility] where procedure was done but they stated they would place patient on 48-hour list but are unable to accept in transfer at this time due to capacity - Discussed case with [facility] general surgeon Dr. Noyola who recommended trialing different antiemetics, making patient n.p.o. for upper endoscopy tomorrow 12/27/2024 -As needed metoclopramide, and Ativan for vomiting -Patient's surgeon Dr. Ricketts gracefully called and give additional information on the patient. She states she has been on multiple antiemetics and promotility agents without improvement. She also stated that she has been closely following his electrolytes while on TPN and they have all been within normal limits - Upon further questioning of the patient, the real reason he came in is because he vomited 5 times last night and developed a fever, which concerned him. He understands and there may not be a fix for his more chronic vomiting and that it was slowly improving, but given the fever and significant increase in amount of vomiting episodes on the night of 12/25/2024 prompted him to come to the emergency department. -It is possible that increased episodes of vomiting experienced at night prior to arrival as well as fever may be secondary to a viral gastritis, though out of an abundance of caution we will continue with plan to be further evaluated by general surgeon Dr. Noyola, and treat empirically for bacterial infection/sepsis as noted below -Will continue p.o. erythromycin, IV metoclopramide, IV Zofran, and IV Ativan for vomiting - Appreciate nutrition consultation for ongoing TPN Dec 29: plan is to continue working on PO intake and to taper down TPN, with the goal to make progress toward stopping TPN. Dec 30: TPN reduced 20% for tonight. Will review for additional reduction tomorrow. Patient has oncology appointment Jan 26. He would like to continue going with the Clinimix formula at discharge instead of the previous TPN formula. (2) Sepsis: Status: Resolved Assessment and plan: - Patient meets sepsis criteria at this time with a heart rate of 100, temperature of 101.6 ?F, and leukopenia with a white blood cell count of 3.6, though no source of infection is noted at this time - Given that patient has cholangiosarcoma status post Whipple, will initiate vancomycin and cefepime - Blood cultures were already drawn in the emergency department, will follow-up - Will also order chest x-ray and head CT to look for potential source of infection as CT abdomen pelvis was without potential source (3) Cholangiocarcinoma: Status: Acute Assessment and plan: - Unclear stage at this time - Patient has not had in person follow-up with oncology since his procedure (4) H/O Whipple procedure: Status: Acute Assessment and plan: - Procedure done October 17, 2024 as noted above - Cannot rule out post operative or intraoperative complications resulting in intractable vomiting as noted above Subjective Subjective Interval history since last seen: Mr. Syed's last emesis was the afternoon of Dec 28. He has some nausea this afternoon after eating a fair amount at lunch. Exam Narrative Exam Narrative: General: This is a very pleasant man in no acute distress HEENT: Normocephalic, atraumatic CV: RRR Resp: CTAB Abd: soft, NTND, surgical scar c/d/i MSK: voluntary motion x4 Neuro: awake, alert, no focal deficits Objective Last Vital Signs Temp 36.8 C 12/30/24 15:10 Pulse 76 12/30/24 15:10 Resp 16 12/30/24 15:10 BP 117/58 L 12/30/24 15:10 Pulse Ox 98 12/30/24 15:10 Laboratory Results - last 24 hr 12/30/24 14:00 WBC 5.27 RBC 3.07 L Hgb 8.7 L Hct 26.4 L MCV 86 MCH 28.3 MCHC 33.0 RDW 14.2 H Plt Count 175 MPV 10.8 Immature Gran % 0.4 Neutrophils % 60.7 Lymphocytes % 21.3 Monocytes % 10.4 Eosinophils % 6.8 Basophils % 0.4 Nucleated RBC % 0.0 Absolute Neutrophils 3.20 Absolute Lymphocytes 1.12 L Absolute Monocytes 0.55 Absolute Eosinophils 0.36 Absolute Basophils 0.02 Sodium 140 Potassium 3.5 Chloride 111 H Carbon Dioxide 20.2 L Anion Gap 8.8 BUN 13 Creatinine 0.8 Est GFR (CKD-EPI 2020) 90.58 Glucose 136 H Calcium 8.1 L Magnesium 1.7 L Total Bilirubin 0.2 AST 29 ALT 34 Alkaline Phosphatase 62 Total Protein 5.8 L Albumin 2.0 L Time Spent with Patient Time Spent with Patient: 25-34 minutes Time was spent: preparing to see the patient(eg.review tests), obtaining and/or reviewing separately otained hiistory, ordering medications,tests, procedures, referring, communicating with other health hospice care transitions coordinator, indepentently interpreting results, counseling the patient and care coordination
[2024-12-30 20:03] VITALS: BP 128/61; PULSE 78; RESP 18; TEMP 37.1; O2SAT 96
[2024-12-31 00:08] VITALS: BP 110/59; PULSE 76; RESP 16; TEMP 36.6; O2SAT 95
[2024-12-31] MEDS: Normal Saline 1,000 ML 75 ML IV ×2 (01:48→16:29)
[2024-12-31 03:23] VITALS: BP 104/63; PULSE 72; RESP 16; TEMP 36.7; O2SAT 96
[2024-12-31 09:00] VITALS: BP 106/54; PULSE 78; RESP 18; TEMP 36.7; O2SAT 98
[2024-12-31] MEDS: Ondansetron O.D.T. 4 MG TABEF PO ×3 (09:05→20:11)
[2024-12-31] MEDS: Metoclopramide 10 MG TAB PO ×4 (09:05→22:52)
[2024-12-31] MEDS: CEFEPIME 2 GM in Normal Saline 100 ML IVPB ×3 (09:05→23:12)
[2024-12-31] MEDS: Normal Saline Flush 10 ML SYR IVP (09:06)
[2024-12-31] MEDS: VANCOMYCIN/WATER (PEG) 1 GM/200 ML BAG IVPB ×2 (10:01→20:11)
[2024-12-31 16:27] VITALS: BP 138/57; PULSE 68; RESP 20; TEMP 36.9; O2SAT 98
[2024-12-31 20:09] VITALS: BP 120/53; PULSE 78; RESP 18; TEMP 36.9; O2SAT 96
--- NOTE | 2024-12-31 23:00 | PGE_ITS ---
Date of Service Date of service: 12/31/24 Time of Service: 08:00 Assessment and Plan Assessment and plan (1) Intractable vomiting without nausea: Status: Acute Assessment and plan: Last episode of vomiting Dec 28 afternoon He is tolerating more PO intake Will try to increase PO intake and decrease TPN over the weekend with the intent to discharge off TPN. - Unclear cause at this time - Patient did have Whipple procedure October 17, 2024 and has had spontaneous vomiting without nausea since that time - Attempts were made to transfer patient to [facility] where procedure was done but they stated they would place patient on 48-hour list but are unable to accept in transfer at this time due to capacity - Discussed case with [facility] general surgeon Dr. Noyola who recommended trialing different antiemetics, making patient n.p.o. for upper endoscopy tomorrow 12/27/2024 -As needed metoclopramide, and Ativan for vomiting -Patient's surgeon Dr. Ricketts gracefully called and give additional information on the patient. She states she has been on multiple antiemetics and promotility agents without improvement. She also stated that she has been closely following his electrolytes while on TPN and they have all been within normal limits - Upon further questioning of the patient, the real reason he came in is because he vomited 5 times last night and developed a fever, which concerned him. He understands and there may not be a fix for his more chronic vomiting and that it was slowly improving, but given the fever and significant increase in amount of vomiting episodes on the night of 12/25/2024 prompted him to come to the emergency department. -It is possible that increased episodes of vomiting experienced at night prior to arrival as well as fever may be secondary to a viral gastritis, though out of an abundance of caution we will continue with plan to be further evaluated by general surgeon Dr. Noyola, and treat empirically for bacterial infection/sepsis as noted below -Will continue p.o. erythromycin, IV metoclopramide, IV Zofran, and IV Ativan for vomiting - Appreciate nutrition consultation for ongoing TPN Dec 29: plan is to continue working on PO intake and to taper down TPN, with the goal to make progress toward stopping TPN. Dec 30: TPN reduced 20% for tonight. Will review for additional reduction tomorrow. Patient has oncology appointment Jan 26. He would like to continue going with the Clinimix formula at discharge instead of the previous TPN formula. Dec 31: TPN at 50% tonight. At this point he is likely to need TPN for home, will need Clindamix ordered by noon Wednesday. PCP in [place] area needed; patient has PCP in [place] but hasn't seen her in months, she is not aware of his cholangiocarcinoma to his knowledge. (2) Sepsis: Status: Resolved Assessment and plan: - Patient meets sepsis criteria at this time with a heart rate of 100, temperature of 101.6 ?F, and leukopenia with a white blood cell count of 3.6, though no source of infection is noted at this time - Given that patient has cholangiosarcoma status post Whipple, will initiate vancomycin and cefepime - Blood cultures were already drawn in the emergency department, will follow-up - Will also order chest x-ray and head CT to look for potential source of infection as CT abdomen pelvis was without potential source (3) Cholangiocarcinoma: Status: Acute Assessment and plan: - Unclear stage at this time - Patient has not had in person follow-up with oncology since his procedure (4) H/O Whipple procedure: Status: Acute Assessment and plan: - Procedure done October 17, 2024 as noted above - Cannot rule out post operative or intraoperative complications resulting in intractable vomiting as noted above Subjective Subjective Interval history since last seen: Mr. Syed is comfortable, tolerating more food more often. No nausea, no vomiting last 24 hours Exam Narrative Exam Narrative: General: This is a very pleasant man in no acute distress HEENT: Normocephalic, atraumatic CV: RRR Resp: CTAB Abd: soft, NTND, surgical scar c/d/i MSK: voluntary motion x4 Neuro: awake, alert, no focal deficits Objective Last Vital Signs Temp 36.9 C 12/31/24 20:09 Pulse 78 12/31/24 20:09 Resp 18 12/31/24 20:09 BP 120/53 L 12/31/24 20:09 Pulse Ox 96 12/31/24 20:09 Time Spent with Patient Time Spent with Patient: 25-34 minutes Time was spent: preparing to see the patient(eg.review tests), obtaining and/or reviewing separately otained hiistory, ordering medications,tests, procedures, referring, communicating with other health rn long term care, indepentently interpreting results, counseling the patient and care coordination
[2025-01-01] MEDS: Ondansetron O.D.T. 4 MG TABEF PO ×4 (01:23→21:00)
[2025-01-01] MEDS: Normal Saline 1,000 ML 75 ML IV ×2 (06:57→20:58)
[2025-01-01 08:06] VITALS: BP 129/57; PULSE 72; RESP 17; TEMP 37; O2SAT 94
[2025-01-01] MEDS: Metoclopramide 10 MG TAB PO ×4 (08:40→22:40)
[2025-01-01] MEDS: CEFEPIME 2 GM in Normal Saline 100 ML IVPB ×2 (08:41→15:23)
[2025-01-01] MEDS: VANCOMYCIN/WATER (PEG) 1 GM/200 ML BAG IVPB ×2 (09:43→20:59)
[2025-01-01 12:02] VITALS: BP 133/76; PULSE 74; RESP 17; TEMP 36.7; O2SAT 97
[2025-01-01 15:41] VITALS: BP 139/73; PULSE 70; RESP 17; TEMP 36.7; O2SAT 96
--- NOTE | 2025-01-01 18:54 | PGE_ITS ---
Date of Service Date of service: 01/01/25 Time of Service: 18:54 Assessment and Plan Assessment and plan (1) Intractable vomiting without nausea: Status: Acute Assessment and plan: Nausea/vomiting since Whipple, but acute worsening on admission a/w fever and bacteremia Case reviewed with general surgery here and Dr. Ricketts from [facility] surgical oncology No obstruction on 12/27 UGI Last episode of vomiting Dec 28 afternoon He is tolerating more PO intake and getting less nausea with TPN infusions here -Will continue p.o. erythromycin, IV metoclopramide, IV Zofran, and IV Ativan for vomiting - Appreciate nutrition consultation for ongoing TPN, have been tapering down to TPN at 50% by 01/01 - At this point he is likely to need TPN for home, will need Clindamix ordered b y noon Wednesday. PCP in [place] area needed; patient has PCP in [place] but hasn't seen her in months, she is not aware of his cholangiocarcinoma to his knowledge. (2) Sepsis: Status: Resolved Assessment and plan: - Patient met sepsis criteria at admission with a heart rate of 100, temperature of 101.6 ?F, and leukopenia with a white blood cell count of 3.6 - Given that patient has cholangiosarcoma status post Whipple, will has been treated with vancomycin and cefepime - Chest x-ray and head and A/P CT without potential source - Blood cultures growing 1/2 staph warneri. Repeated 01/01. With PICC in place and cancer, he is at risk for this typically opportunistic infection - Called [facility] for treatment recommendations, 01/01, no call back (3) Cholangiocarcinoma: Status: Acute Assessment and plan: - Unclear stage at this time - Patient has not had in person follow-up with oncology since his procedure, scheduled in January (4) H/O Whipple procedure: Status: Acute Assessment and plan: - Procedure done October 17, [address] Ricketts at [facility] as noted above - Some concern for physical obstruction from surgery resulting in intractable vomiting as noted above, but UGI reassuring Subjective Subjective Patient reports: no new complaints and tolerating a regular diet; denies diarrhea, vomiting or fever Interval history since last seen: Feeling better. He thinks he is eating 500-1000 calories/day. Hasn't vomited for 3 days. Voiding more than normal at night, no pain. Exam Narrative Exam Narrative: General: Very pleasant man in no acute distress HEENT: no icterus, MMM CV: RRR no murmur Resp: CTAB, nl effort Abd: soft, NTND, surgical scar c/d/i Neuro: awake, alert, no focal deficits Objective Last Vital Signs Temp 36.7 C 01/01/25 15:41 Pulse 70 01/01/25 15:41 Resp 17 01/01/25 15:41 BP 139/73 01/01/25 15:41 Pulse Ox 96 01/01/25 15:41 Time Spent with Patient Time Spent with Patient: >50 minutes Time was spent: preparing to see the patient(eg.review tests), obtaining and/or reviewing separately otained hiistory, ordering medications,tests, procedures, referring, communicating with other health rn care transition, indepentently interpreting results, counseling the patient and care coordination
[2025-01-01 19:24] VITALS: BP 164/88; PULSE 106; RESP 16; TEMP 36.6; O2SAT 95
[2025-01-01] MEDS: Normal Saline Flush 10 ML SYR IVP (20:59)
[2025-01-01] MEDS: Senna TAB 1 TAB PO (21:00)
[2025-01-01 23:16] VITALS: BP 128/65; PULSE 77; RESP 16; TEMP 37.4; O2SAT 95
[2025-01-02] MEDS: CEFEPIME 2 GM in Normal Saline 100 ML IVPB ×2 (00:45→07:59)
[2025-01-02 02:53] VITALS: BP 109/64; PULSE 73; RESP 16; TEMP 36.8; O2SAT 96
[2025-01-02 07:29] VITALS: BP 109/78; PULSE 73; RESP 18; TEMP 36.7; O2SAT 96
[2025-01-02] MEDS: Normal Saline Flush 10 ML SYR IVP ×3 (07:59→20:28)
[2025-01-02] MEDS: Ondansetron O.D.T. 4 MG TABEF PO ×3 (07:59→20:27)
[2025-01-02] MEDS: Metoclopramide 10 MG TAB PO ×4 (07:59→21:49)
--- NOTE | 2025-01-02 10:05 | CMPROGNOTE_ITS ---
Date of service: 01/02/25 Time of Service: 10:05 Care Management Progress Note Progress Note Text Progress Note Text: Noe was sitting up in bed when CM met with him. Noe was anticipated to d/c yesterday, [employer] delivered TNP. Patient remains inpatient due to positive blood cultures. Per provider, Infectious Disease has been consulted. CM will continue to coordinate TPN and IV antibiotics with [facility]. The patient was pleasant and engaged in conversation. He reported plans to contact the [facility] to begin establishing care and will also reach out to his primary care provider in [place] to inquire about eligibility for a telehealth f ollow-up visit, given the travel distance. CM will continue to follow and support discharge planning. Discharge Potential Discharge Needs: PCP F/U Appt Anticipated Barriers to Discharge: None Identified Patient/Family Education Needs: Review discharge instructions, discuss Ask Me Three Transportation: Private vehicle Plan: Anticipate Noe will be discharged home with a resumption of RN, once medically ready. It is recommended he follow up with his community providers, palliative care, and discharge plan of care. He will be transported home via private vehicle. CM will continue to follow. Social Determinants of Health Screening Social Determinants of health last assessed in clinic: 01/02/25 Will the Patient Participate in the Screening?: Yes Do you worry about having a steady place to live?: no Problems where you live: no known problems In the past 12 months, have you had to go without electric, gas, oil or water in your home?: no 1. Within the past 12 months, we worried whether our food would run out before we got money to buy more.: Never true 2. Within the past 12 months, the food we bought just didn't last and we didn't have money to get more.: Never true Has lack of transportation kept you from medical appointments or from doing things needed for daily living?: no Has anyone in your life made you feel unsafe or unsupported?: no How hard is it for you to pay for the very basics like food, housing, medical care, and heating? Would you say it is:: Not hard at all Do you want help finding or keeping work or a job?: I do not need or want help If for any reason you need help with day-to-day activities such as bathing, preparing meals, shopping, managing finances, etc., do you get the help you need?: I don?t need any help How often do you feel lonely or isolated from those around you?: Never Do you speak a language other than Palauan at home?: No Does the patient want assistance with any of the above?: No
[2025-01-02] MEDS: VANCOMYCIN/WATER (PEG) 1 GM/200 ML BAG IVPB ×2 (10:52→20:27)
[2025-01-02 11:46] VITALS: BP 137/74; PULSE 106; RESP 16; TEMP 36.6; O2SAT 97
--- NOTE | 2025-01-02 12:33 | W.NUTRFU ---
Date of service: 01/02/25 Time of Service: 12:33 Nutrition Note NOTE: follow up with Mr Syed. He feels like he is tolerating Clinimix better than his home TPN (which was a 3-in-1) but also could be due to better medication mgt of his nausea as well. Visited after breakfast - he at a bowl of raisin bran with some milk. Ordered shepards pie with carrots, a protein smoothie and some prunes for lunch. Constipation a problem now most likely a/w his recent surgery and lack of fiber and movement since. TPN was weaned down to 40mL/hour and fat emulsion still at 31.25 over 8 hours for the full 250mL/50g lipid. Total TPN currently contributing 1,010kcals (510 from dextrose and AA's and 500 from lipid emulsion), leaving about 800kcals to meet by mouth. He is getting 42.5g protein currently from TPN, leaving about 40-60g to be met by mouth for ideal protein intake. TPN to be stopped with PICC removal on 01/02 related to staph bacteremia which will be a set back as far as energy and protein intake. Last weight was 12/26. Last TGL lab was 99 on 12/23 NFPE not performed: pt declines at this time I checked on pt twice after lunch and by 2pm had still not touched his lunch. As Mr Syed's discharge has been delayed d/t development of bacteremia, I initiated a calorie count and updated his nurse regading logging intake of food and beverages along with kitchen staff on itemized meal slips. Plan is to gather 2-3 days worth of reliable intake info to estimate his current po intake. ONS will be offered and other energy and nutrient dense appropriate foods per his tolerance. Recommendations: -replete low potassium and Cl with low labs today (01/03 -Vitamin D lab as pt at risk for deficiency and current low Ca+ lab -Current weight -restart tpn when PICC back in and adjust according to po estimates -would suggest another TGL lab to assess current rate/toleration. Goal at discharge would be to free up Noe from being tethered to tpn constantly - he was doing a 3-in-1 nocturnal cycle at home. With preference now for Clinimix, the lipids would need to run separately (I don't think lipids and D/AA bag can run cuncurrrently?). Will monitor frequently to make recommendations with TPN prior to discharge and MR has my card so we can work together in outpatient setting as well. Time Spent in Nutritional Counseling and Treatment: 15 minutes
[2025-01-02 15:20] VITALS: BP 172/70; PULSE 80; RESP 16; TEMP 36.8; O2SAT 96
--- NOTE | 2025-01-02 16:49 | W.PM.PROGNOT ---
Date of Service Date of service: 01/02/25 Time of Service: 16:49 Assessment and Plan Assessment and plan (1) Coag negative Staphylococcus bacteremia: Status: Acute Assessment and plan: - Patient met sepsis criteria at admission with a heart rate of 100, temperature of 101.6 ?F, and leukopenia with a white blood cell count of 3.6 - Given that patient has cholangiosarcoma status post Whipple, was treated with vancomycin and cefepime since then - Chest x-ray and head and A/P CT without potential source - Blood cultures growing 2/4 staph warneri. Repeated 01/01. With PICC in place and cancer, he is at risk for this typically opportunistic infection - Called [facility] for treatment recommendations,no call back 01/01 but discussed 01/02 am. Recommended removing PICC, getting sensitivities on staph, continuing vancomycin alone for now, and replacing PICC when cultures clear, repeated them today after PICC removed, also culture PICC tip. (2) Intractable vomiting without nausea: Status: Acute Assessment and plan: Nausea/vomiting since Whipple, but acute worsening on admission a/w fever and bacteremia Case reviewed with general surgery here and Dr. Ricketts from [facility] surgical oncology No obstruction on 12/27 UGI Last episode of vomiting Dec 28 afternoon He is tolerating more PO intake and getting less nausea with TPN infusions here -Will continue oral metoclopramide, ODT Zofran. Can use prn IV Ativan for vomiting - Appreciate nutrition consultation for ongoing TPN, have been tapering down to TPN at 50% by 01/01 - At this point he is likely to need TPN for home, will need Clindamix, but on hold with PICC removed for infection as above (3) Cholangiocarcinoma: Status: Acute Assessment and plan: - Unclear stage at this time - Patient has not had in person follow-up with oncology since his procedure, scheduled in January (4) H/O Whipple procedure: Status: Acute Assessment and plan: - Procedure done October 17, [address] Ricketts at [facility] [place] as noted above - Some concern for physical obstruction from surgery resulting in intractable vomiting as noted above, but UGI reassuring (5) DVT prophylaxis: Status: Acute Assessment and plan: He is high risk, at this point start enoxaparin (6) Discharge planning issues: Status: Acute Assessment and plan: Home after PICC replaced, likely 01/04. Sees palliative at as outpatient, notes reviewed. Check with ID about plan once sensitivities back before discharge, but treatment typically 1-2 weeks. Subjective Subjective Patient reports: no new complaints and voiding w/o difficulty; denies vomiting, shortness of breath or fever Interval history since last seen: Events: Blood culture noted growing staph warneri. Case reviewed with ID consult He feel well this morning. Still eating a small amount. not nauseous. Concerned about the plan and the infection. Exam Narrative Exam Narrative: General: Very pleasant man in no acute distress HEENT: no icterus, MMM SKIN: No rash, PICC appears benign CV: RRR no murmur Resp: CTAB, nl effort Abd: soft, NTND Neuro: awake, alert, no focal deficits Objective Last Vital Signs Temp 36.8 C 01/02/25 15:20 Pulse 80 01/02/25 15:20 Resp 16 01/02/25 15:20 BP 172/70 H 01/02/25 15:20 Pulse Ox 96 01/02/25 15:20 Time Spent with Patient Time Spent with Patient: 35-49 minutes Time was spent: preparing to see the patient(eg.review tests), obtaining and/or reviewing separately otained hiistory, ordering medications,tests, procedures, referring, communicating with other health managed care specialist, indepentently interpreting results, counseling the patient and care coordination
--- NOTE | 2025-01-02 17:39 | CHAPLAIN ---
At the end of lastl week, Noe was planning on being discharged yesterday (Wednesday) but had positive blood cultures. He was taken of TPN and his PICC line was removed incase that was a point of infection. He'll be staying for a few more days until the infection is cleared up. His hypertension has cleared up. Noe is from [place] (originally from [facility]) and has been in the for 45 years. 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 He and his , Meliza, are currently living in an inlaw apartment at their son's [address] have ejoyed being there this summer. Meliza was coming in later this afternoon. Today he talked about his cancer diagnosis and prognosis and how those has changed his perspective. We talked about [place] politics which Noe is very interested in. 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 He remains pleasant and easily engages in conversation. He said staff have commented to him about that he is pleasant with them them, and often thanks them for the care they provide and he said he see now reason not to be pleasant and is disappointed to hear that patients are not kind to the staff. I will continue to visit.
[2025-01-02] MEDS: Enoxaparin 40 MG/0.4 ML SYR SC (18:09)
[2025-01-02] MEDS: POTASSIUM CHLORIDE/D5-0.45NACL 1,000 ML 100 MEQ IV (18:12)
[2025-01-02 19:51] VITALS: BP 124/62; PULSE 72; RESP 18; TEMP 36.6; O2SAT 95
[2025-01-02 23:54] VITALS: BP 107/54; PULSE 68; RESP 18; TEMP 36.4; O2SAT 96
[2025-01-03 03:07] VITALS: BP 115/62; PULSE 72; RESP 16; TEMP 36.4; O2SAT 94
[2025-01-03] MEDS: Normal Saline Flush 10 ML SYR IVP ×3 (05:30→19:50)
[2025-01-03] MEDS: Acetaminophen 325 MG TAB 650 MG PO ×3 (05:44→19:59)
[2025-01-03 07:02] LABS: HCT 26.9 % (40.0-50.0); HGB 8.7 g/dL (13.5-17.5); MCH 27.7 pg (27.0-33.0); MCHC 32.3 % (32.0-36.0); MCV 86 fL (80-95); MPV 11.1 fL (8.0-11.0); Platelet Count 245 10^3/uL (130-400); RBC 3.14 10^6/uL (4.36-5.78); RDW 14.4 % (11.8-14.1); RDW-SD 44.4 fL; WBC 5.58 10^3/uL (4.4-10.8)
[2025-01-03 07:17] LABS: Vancomycin, Random 17.4 ug/mL
[2025-01-03 07:28] LABS: Anion Gap 10.0 mmol/L (3-11); BUN 8 mg/dL (7-18); CO2 20.0 mmol/L (21.0-32.0); Calcium 8.3 mg/dL (8.5-10.1); Chloride 113 mmol/L (98-107); Estimated GFR 90.58 (mL/min/1.73m2); Glucose 102 mg/dL (74-106); Magnesium 1.7 mg/dL (1.8-2.4); Potassium 3.2 mmol/L (3.5-5.1); Sodium 143 mmol/L (136-145)
[2025-01-03 08:00] VITALS: PULSE 88
[2025-01-03 08:15] VITALS: BP 140/75; PULSE 74; RESP 16; TEMP 36.6; O2SAT 96
[2025-01-03] MEDS: VANCOMYCIN/WATER (PEG) 1 GM/200 ML BAG IVPB ×2 (08:31→19:51)
[2025-01-03] MEDS: Ondansetron O.D.T. 4 MG TABEF PO ×3 (08:31→19:49)
[2025-01-03] MEDS: Metoclopramide 10 MG TAB PO ×4 (08:32→21:29)
--- NOTE | 2025-01-03 09:12 | PDOC.CMPRO ---
Date of service: 01/03/25 Time of Service: 12:05 Care Management Progress Note Progress Note Text Progress Note Text: Noe was sitting up in bed when CM met with him. He was pleasant and willing to engage. Per report, he will continue on vanco and a new PICC line will be replaced when cultures are clear. CM will follow with NE. Per provider, anticipate Noe may d/c in the next few days. Per NE, current TPN order is still valid. Noe reports that he has been eating small amounts of food and generally tolerating it well. However, he experienced an episode of vomiting yesterday after lunch, which he believes was due to overdoing it following the removal of his previous PICC line. He was able to eat and tolerate breakfast today. Noe has reached out to his primary care provider regarding a telehealth appointment and is awaiting a call back. He met with the dietitian yesterday to review his nutritional needs. CM will follow. Discharge Potential Discharge Needs: PCP F/U Appt Anticipated Barriers to Discharge: Medical Status Patient/Family Education Needs: Review discharge instructions, discuss Ask Me Three Transportation: Private vehicle Plan: Anticipate Noe will be discharged home with a resumption of RN, once medically ready. It is recommended he follow up with his community providers, palliative care, and discharge plan of care. He will be transported home via private vehicle. CM will continue to follow. Social Determinants of Health Screening Social Determinants of health last assessed in clinic: 01/03/25 Will the Patient Participate in the Screening?: Yes Do you worry about having a steady place to live?: no Problems where you live: no known problems In the past 12 months, have you had to go without electric, gas, oil or water in your home?: no 1. Within the past 12 months, we worried whether our food would run out before we got money to buy more.: Never true 2. Within the past 12 months, the food we bought just didn't last and we didn't have money to get more.: Never true Has lack of transportation kept you from medical appointments or from doing things needed for daily living?: no Has anyone in your life made you feel unsafe or unsupported?: no How hard is it for you to pay for the very basics like food, housing, medical care, and heating? Would you say it is:: Not hard at all Do you want help finding or keeping work or a job?: I do not need or want help If for any reason you need help with day-to-day activities such as bathing, preparing meals, shopping, managing finances, etc., do you get the help you need?: I don?t need any help How often do you feel lonely or isolated from those around you?: Never Do you speak a language other than Burundian at home?: No Does the patient want assistance with any of the above?: No
[2025-01-03 16:04] VITALS: BP 142/76; PULSE 98; RESP 16; TEMP 36.7; O2SAT 95
--- NOTE | 2025-01-03 16:23 | W.PM.PROGNOT ---
Date of Service Date of service: 01/03/25 Time of Service: 16:23 Assessment and Plan Assessment and plan (1) Coag negative Staphylococcus bacteremia: Status: Acute Assessment and plan: - Patient met sepsis criteria at admission with a heart rate of 100, temperature of 101.6 ?F, and leukopenia with a white blood cell count of 3.6 - Given that patient has cholangiosarcoma status post Whipple, was treated with vancomycin and cefepime 12/26-01/02, then cefepime stopped - Chest x-ray and head and A/P CT without potential source - Blood cultures growing 2/4 staph warneri. Repeated 01/01. With PICC in place and cancer, he is at risk for this typically opportunistic infection - Called ID for treatment recommendations,no call back 01/01 but discussed 01/02 am. Recommended removing PICC, getting sensitivities on staph, continuing vancomycin alone until sensitivities return (called lab to request) - PICC out 01/02, another set of cultures drawn, also PICC tip cultured. - Plan to replace PICC 01/04 as long as cultures negative, home then after discussing again with ID. (2) Intractable vomiting without nausea: Status: Acute Assessment and plan: Nausea/vomiting since Whipple, but acute worsening on admission a/w fever and bacteremia Case reviewed with general surgery here and Dr. Ricketts from [facility] surgical oncology No obstruction on 12/27 UGI Last episode of vomiting Dec 28 afternoon He is tolerating more PO intake and getting less nausea with TPN infusions here -Will continue oral metoclopramide, ODT Zofran. Can use prn IV Ativan for vomiting - Appreciate nutrition consultation for ongoing TPN, have been tapering down to TPN at 50% by 01/01 - At this point he is likely to need TPN for home, will need Clindamix, but on hold with PICC removed for infection as above, he is doing his best with oral until PICC back in (3) Cholangiocarcinoma: Status: Acute Assessment and plan: - Unclear stage at this time - Patient has not had in person follow-up with oncology since his procedure, scheduled in January (4) H/O Whipple procedure: Status: Acute Assessment and plan: - Procedure done October 17, [address] Ricketts at [facility] [place] as noted above - Some concern for physical obstruction from surgery resulting in intractable vomiting as noted above, but UGI reassuring (5) DVT prophylaxis: Status: Acute Assessment and plan: He is high risk, on enoxaparin (6) Discharge planning issues: Status: Acute Assessment and plan: Home after PICC replaced, likely 01/04. Sees palliative at as outpatient, notes reviewed. Check with ID about plan once sensitivities back before discharge, but treatment typically 1-2 weeks. Subjective Subjective Patient reports: no new complaints, tolerating a regular diet, voiding w/o difficulty and vomiting (x1 after eating shephards pie last night); denies nausea, shortness of breath or fever Interval history since last seen: He feels okay, happy with the plan. He is worried about his , who is in the ED with apparent infection of breast cancer wound. He thinks he vomited from eating too much, more than he had been eating. Exam Narrative Exam Narrative: General: Very pleasant man in no acute distress HEENT: no icterus, MMM SKIN: No rash, PICC appears benign CV: RRR no murmur Resp: CTAB, nl effort Abd: soft, NTND Neuro: awake, alert, no focal deficits Objective Last Vital Signs Temp 36.7 C 01/03/25 16:04 Pulse 98 H 01/03/25 16:04 Resp 16 01/03/25 16:04 BP 142/76 H 01/03/25 16:04 Pulse Ox 95 01/03/25 16:04 Laboratory Results - last 24 hr 01/03/25 06:10 WBC 5.58 RBC 3.14 L Hgb 8.7 L Hct 26.9 L MCV 86 MCH 27.7 MCHC 32.3 RDW 14.4 H Plt Count 245 MPV 11.1 H Sodium 143 Potassium 3.2 L Chloride 113 H Carbon Dioxide 20.0 L Anion Gap 10.0 BUN 8 Creatinine 0.8 Est GFR (CKD-EPI 2020) 90.58 Glucose 102 Calcium 8.3 L Magnesium 1.7 L Random Vancomycin 17.4 Time Spent with Patient Time Spent with Patient: 35-49 minutes Time was spent: preparing to see the patient(eg.review tests), obtaining and/or reviewing separately otained hiistory, ordering medications,tests, procedures, referring, communicating with other health child care center assistant director, indepentently interpreting results, counseling the patient and care coordination
--- NOTE | 2025-01-03 16:59 | W.PALLCONSUL ---
Date of service: 01/03/25 Time of Service: 16:30 History of Present Illness Narrative: Mr. Liu is a 79 y/o M currently hospitalized 2/2 intractable vomitting; PMHx sig for cholangiocarcinoma (post whipple 10/17/24), prostate cancer (16 years ago); present at beside son Juarez Liu was admitted on 12/26 w/intractable vomiting, in setting of post whipple 2/2 cholangiocarcinoma; he was scheduled for d/c 01/01 however he had a positive blood culture and remained hospitalized meeting sepsis criteria; last emesis yesterday; discharge pending resolution/control of vomiting - strict calorie count, TPN tapering down w/increased oral intake PC visit today d/t Noe's currently in the ED, to provide social support; he has been in regular contact w/her, is feeling more reassured He is connected to palliative care, q2wk f/u via , unsure when his next f/u is; transferring his oncology care to , [facility] f/u scheduled for 01/19; would like to continue w/PC outpatient as able, continue for now, pending f/u plans Living in [place] previously, currently living in in-law apartment w/son Juarez and his partner. Hoping his PCP from [place] will be able to Rx the home TPN and IV meds prior to establishing w/new PCP in [facility] pending Assessment and Plan Assessment and plan (1) Coag negative Staphylococcus bacteremia: Status: Acute Assessment and plan: met sepsis criteria; vanc, cefepime stopped 01/02 PICC removed 01/02 plan to replace 01/04, pending negative cultures (2) Cholangiocarcinoma: Status: Acute Assessment and plan: staging unclear pending oncology f/u, [place] 01/19, new patient (3) H/O Whipple procedure: Status: Acute Assessment and plan: 10/17/24 in setting of cholangiocarcinoma (4) Intractable vomiting without nausea: Status: Acute Assessment and plan: no vomiting today yesterday's potentially 2/2 overeating, working on finding balance w/TPN vs oral intake (5) Discharge planning issues: Status: Acute Assessment and plan: discharge pending resolution of intractable vomitting TBD at this time (6) Palliative care encounter: Status: Acute Assessment and plan: PC will continue to follow, presume outpatient, pending discharge plan - may be appropriate f/u on Wednesday pending other consults - may continue to follow w/DH PC, [facility] PC will reach out post discharge for f/u plans Review of Systems Narrative: as per HPI PFSH All Active Problems (Updated 01/03/25 @ 17:05 by Angelita Beltran NP) Palliative care encounter (Acute) Discharge planning issues (Acute) DVT prophylaxis (Acute) Coag negative Staphylococcus bacteremia (Acute) H/O Whipple procedure (Acute) Cholangiocarcinoma (Acute) Intractable vomiting without nausea (Acute) Intractable vomiting (Acute) Vomiting (Acute) Social History Smoking/Tobacco Use Status: Never Smoking risk assessment performed?: Yes Alcohol Intake: never Drug use: Never Substance use type: does not use Housing: apartment Do you feel safe at home: Yes Do you feel safe in your relationship?: Yes Exam Narrative Exam Narrative: General: older adult male, lying in hospital bed, puts on mask on arrival HEENT: mask in place, normocephalic, atraumatic, hearing grossly WNL Resp: even and unlabored, speaks full sentences w/o SOB Psych: pleasant, cooperative, MS clear/WNL; thought process normal Results Last Vital Signs Temp 98.1 F 01/03/25 16:04 Pulse 98 H 01/03/25 16:04 Resp 16 01/03/25 16:04 BP 142/76 H 01/03/25 16:04 Pulse Ox 95 01/03/25 16:04 Labs 01/03/25 06:10 01/03/25 06:10 Labs: Laboratory Results - last 24 hr 01/03/25 06:10 WBC 5.58 RBC 3.14 L Hgb 8.7 L Hct 26.9 L MCV 86 MCH 27.7 MCHC 32.3 RDW 14.4 H Plt Count 245 MPV 11.1 H Sodium 143 Potassium 3.2 L Chloride 113 H Carbon Dioxide 20.0 L Anion Gap 10.0 BUN 8 Creatinine 0.8 Est GFR (CKD-EPI 2020) 90.58 Glucose 102 Calcium 8.3 L Magnesium 1.7 L Random Vancomycin 17.4 Time Spent Time Spent with Patient Time Spent(min): 35
[2025-01-03] MEDS: Enoxaparin 40 MG/0.4 ML SYR SC (17:56)
[2025-01-03 22:20] VITALS: BP 140/60; PULSE 68; RESP 16; TEMP 36.7; O2SAT 97
[2025-01-04] MEDS: Ondansetron O.D.T. 4 MG TABEF PO ×4 (02:24→19:48)
[2025-01-04] MEDS: Metoclopramide 10 MG TAB PO ×2 (07:31→17:26)
[2025-01-04] MEDS: VANCOMYCIN/WATER (PEG) 1 GM/200 ML BAG IVPB (07:32)
[2025-01-04 07:41] VITALS: BP 122/61; PULSE 72; RESP 16; TEMP 36.7; O2SAT 98
--- NOTE | 2025-01-04 08:45 | RT.EKG_ITS ---
APPROVED REPORT Exam: Resting ECG Reason for Exam: abnormal p waves on telemetry, baseline ekg Patient Location: I HR:77 bpm ECG Measurements Heart Rate 77 AXIS AK 179 P 40 QRSd 102 QRS -51 QT 412 T 50 QTc 467 Conclusion Sinus rhythm...normal P axis, V-rate 50- 99 Left anterior fascicular block...axis(240,-40), init forces inf Borderline low voltage, extremity leads...all extremity leads <0.6mV Abnormal R-wave progression, late transition...QRS area<0 in V5/V6
--- NOTE | 2025-01-04 10:09 | PDOC.CMDIS ---
Date of service: 01/05/25 Time of Service: 17:13 LACE Index Scoring Tool Questions: Length of Stay (in days): 7 - 13 Was the patient admitted via the E.D.?: Yes Comorbidities: Metastatic Solid Tumor (cholangiocarcinoma) E.D. Visits: 1 Answers: Total Score: 14 Risk of Readmission: High Risk Care Management Discharge Plan Reason for Hospitalization: Intractable vomiting Discharge Plan: Noe was discharged home with a new HH RN as well as TPN and home IV medications that are supplied through [facility]. [facility] TNP, and IV medications coordinated by CM and provider yesterday; All requested documentation sent to the supplier. Noe states he has 2 bags of TPN at his house currently; Will be and was recommended by [facility] to discard of these and utilize the new supply. RYAN will have TPN delivered by end of day today. It is recommended he follow up with his community providers, palliative care, and discharge plan of care; Local PCP list given to the patient, he is wanting to establish with [facility] and continue with telehealth visits at his current PCP. He will be transported home via private vehicle by his . Noe will receive a new PICC line at [facility] tomorrow at 10:00. He has been notified of this appointment. FRANKIE contacted nursing supervisor refining at [facility] who is agreeable to faxing the PICC report to [facility]. D/C summary faxed to [facility]. Daily IV antibiotics for 6 days coordinated by CM at the infusion center. Patient/Family Education Needs: Review of discharge instructions, activity, limitation, and plan of care. Discuss ask me three Services Needed at Discharge: Home Health Care Services
[2025-01-04 11:35] LABS: Anion Gap 10.8 mmol/L (3-11); BUN 9 mg/dL (7-18); CO2 18.2 mmol/L (21.0-32.0); Calcium 8.2 mg/dL (8.5-10.1); Chloride 113 mmol/L (98-107); Estimated GFR 94.31 (mL/min/1.73m2); Glucose 107 mg/dL (74-106); Magnesium 1.6 mg/dL (1.8-2.4); Potassium 3.4 mmol/L (3.5-5.1); Sodium 142 mmol/L (136-145)
[2025-01-04 11:41] LABS: Iron 26 ug/dL (65-175); Total Iron Binding Capacity 285 ug/dL (250-450); Transferrin Sat 9 % (20-55)
[2025-01-04] MEDS: ceFAZolin 1 GM/50 ML BAG IVPB ×2 (13:46→13:58)
--- NOTE | 2025-01-04 14:51 | CHAPLAIN ---
Noe was visiting with Meliza when I stopped in. Noe said he may be discharged today but he hasn't had that confirmed. Yesterday Meliza was in the ED with a concern about a scar tissue area from breast cancer surgery. She is on antibiotics now and will have a follow up appointment. 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 Noe met yesterday with Angelita Beltran NP from Palliative and will have a follow up appointment.
[2025-01-04] MEDS: Normal Saline Flush 10 ML SYR IVP ×2 (15:04→19:49)
--- NOTE | 2025-01-04 15:50 | CMPROGNOTE_ITS ---
Date of service: 01/04/25 Time of Service: 15:50 Care Management Progress Note Progress Note Text Progress Note Text: Noe was lying in bed when CM met with him. Noe requires a new PICC line to be placed prior to discharge. Per report, he may need to go down and back to [facility] to receive this. CM sent updated documentation to [facility], as requested. CM will continue to follow. Discharge Potential Discharge Needs: PCP F/U Appt Anticipated Barriers to Discharge: Medical Status Patient/Family Education Needs: Review discharge instructions, discuss Ask Me Three Transportation: Private vehicle Plan: Anticipate Noe will be discharged home with a resumption of RN, once medically ready. It is recommended he follow up with his community providers, palliative care, and discharge plan of care. He will be transported home via private vehicle. CM will continue to follow. Social Determinants of Health Screening Social Determinants of health last assessed in clinic: 01/04/25 Will the Patient Participate in the Screening?: Yes Do you worry about having a steady place to live?: no Problems where you live: no known problems In the past 12 months, have you had to go without electric, gas, oil or water in your home?: no 1. Within the past 12 months, we worried whether our food would run out before we got money to buy more.: Never true 2. Within the past 12 months, the food we bought just didn't last and we didn't have money to get more.: Never true Has lack of transportation kept you from medical appointments or from doing things needed for daily living?: no Has anyone in your life made you feel unsafe or unsupported?: no How hard is it for you to pay for the very basics like food, housing, medical care, and heating? Would you say it is:: Not hard at all Do you want help finding or keeping work or a job?: I do not need or want help If for any reason you need help with day-to-day activities such as bathing, preparing meals, shopping, managing finances, etc., do you get the help you need?: I don?t need any help How often do you feel lonely or isolated from those around you?: Never Do you speak a language other than Amharic at home?: No Does the patient want assistance with any of the above?: No
[2025-01-04] MEDS: Enoxaparin 40 MG/0.4 ML SYR SC (17:26)
--- NOTE | 2025-01-04 19:03 | W.PM.DS.N ---
Date of service: 01/04/25 Time of Service: 19:03 DS: Diagnosis Discharge Diagnosis (1) Coag negative Staphylococcus bacteremia: Status: Acute (2) Cholangiocarcinoma: (3) H/O Whipple procedure: (4) Intractable vomiting without nausea: Status: Acute (5) Palliative care encounter: Status: Acute Discharge Plan Disposition Patient Disposition: Home W/Home Health Services Condition: Improving Discharge Details Reason For Visit: Intractable Vomiting Admit Date/Time: 12/26/24 17:50 Admit Provider: Lebron Meraz Attending Provider: Lebron Meraz Primary Care Provider: Rebecca Mane Hospital Course Hospital Course: 79-year-old male with a past medical history of poorly differentiated cholangiocarcinoma who has been on TPN due to chronic vomiting since his Whipple on October 17, 2024 at [facility] who presented with worse nausea and vomiting and fever. He has had nausea in vomiting since the whipple and thus was on TPN via PICC line, but vomiting was much worse on presentation. He was started on cefepime and vancomycin for sepsis along with scheduled metoclopramide and ondansatron QID. His vomiting improved greatly and he was able to eat more, though not a sufficient number of calories to go without TPN buttermaker continuous churn. 05/23 admission blood cultures eventually grew Staph warneri (coagulase negative). [facility]. Cefepime stopped. Given his indwelling PICC line and immune suppressed state, it was felt prudent to remove the PICC line and repeat cultures, all of which were no growth x 48+ hours at the time of discharge, as was the culture of the PICC line (though removed after 6 days of antibiotics). Due to vascular access staff being away, he went home without replacing the PICC line. [facility] was 6 more days of daily IV ceftriaxone for a total of 9 days of IV antibiotics after the PICC removed. Infusions were set up at [facility] daily and PICC was set up as an outpatient procedure at [facility] for 01/06 so he can resume his TPN. He had been getting insulin mixed in his PICC line. Blood sugars were not high despite not getting this insulin. This suggests he has regained intrinsic function of his pancreas. He was given glargine insulin pen in case his sugars increase before his line was placed. Home Meds and New Rx's Prescriptions: New Intralipid 20 % Emulsion 50 g IVPB DAILY Qty: 0 0RF ondansetron 4 mg Tablet,Disintegrating 4 mg PO Q8H Qty: 90 0RF metoclopramide HCl 10 mg Tablet 10 mg PO AC & HS Qty: 120 0RF insulin glargine [Lantus Solostar U-100 Insulin] 100 unit/mL (3 mL) insulin pen 10 unit subcut QPM Qty: 15 0RF Rx Instructions: use if sugars high (DME) pen needle, diabetic 32 gauge x 3/16 needle See Rx Instructions .Route Qty: 100 0RF Rx Instructions: As directed with glargine pen Continued pantoprazole [Protonix] 40 mg recon soln 40 mg IV DAILY lorazepam 0.5 mg tablet 0.5 mg PO Q6H PRN Humulin R Regular U-100 Insuln 100 unit/mL solution 36 unit subcut QPM erythromycin estolate 250 mg/5 mL suspension 200 mg PO TID Discontinued acetaminophen [Ofirmev] 1,000 mg/100 mL (10 mg/mL) solution 1,000 mg IV Q6H Rx Instructions: administer over 15 minutes metoclopramide HCl 10 mg/mL syringe 10 mg .Route DAILY ondansetron HCl 4 mg/2 mL syringe 4 mg IV .Q8 PRN Discharge Instructions Additional Instructions: Call tomorrow to schedule an antibiotic infusion here at [facility] We are still working to coordinate the PICC line in the next 1-2 days so you can resume the TPN your sugars have been okay off insulin, but we sent an insulin pen incase you need it Activity:: Activity as Tolerated Equipment/Supplies:: Blood Glucose Monitor Diet:: As Tolerated Discharge Orders Discharge Orders: Discharge Order (Routine); Ordered 01/04/25 Ordered By: Fred Castro Discharge Data Discharge Date/Time-TO BE ENTERED AT DEPARTURE: 01/04/25 21:00 DS: Summary Time Spent with Patient providing and/or coordinating discharge services: Greater than 30 minutes Status at Discharge Functional status at discharge: independent ambulation Overall status at discharge: patient is back to baseline Mental Status: mental status grossly normal Speech and Movement: speech and movement normal Mood: congruent mood Affect: normal affect Exam Narrative Exam Narrative: General: Very pleasant man in no acute distress HEENT: no icterus, MMM SKIN: No rash or skin lesions CV: RRR no murmur Resp: CTAB, nl effort Abd: soft, NTND Neuro: awake, alert, no focal deficits Psych Mental Status: mental status grossly normal Speech and Movement: speech and movement normal Mood: congruent mood Affect: normal affect DS: Data Vitals/I&O Vitals and I&O: Vital Signs Temperature 36.7 C 01/04/25 07:41 Temperature Source Temporal Artery Scan 01/04/25 07:41 Pulse 72 01/04/25 07:41 Pulse Rhythm Irregular 12/26/24 20:21 Respiratory Rate 16 01/04/25 07:41 Respiratory Effort Normal, Non-Labored 12/26/24 20:21 Respiratory Depth Normal 12/26/24 20:21 Respiratory Pattern Normal 12/26/24 20:21 Blood Pressure 122/61 01/04/25 07:41 Blood Pressure Mean 81 01/04/25 07:41 Blood Pressure Position Sitting 12/26/24 10:57 Pulse Oximetry 98 01/04/25 07:41 Oxygen Delivery Method Room Air 01/04/25 07:41 Oxygen Flow Rate 0 01/04/25 07:41 Pain Level 0 01/04/25 15:04 Comment PT requested to sleep. 01/04/25 03:52 Intake & Output 01/03/25 01/04/25 01/04/25 23:59 11:59 23:59 Intake Total 400 / 1840 400 / 470 70 / 470 Output Total 750 / 1775 Balance -350 / 65 400 / 470 70 / 470 Intake: IV 400 / 1600 400 / 470 70 / 470 Output: Urine 750 / 1775 Other: Urine Color Pale Yellow Yellow Yellow Urine Appearance Clear Clear Clear Urine Odor Strong Stool Size Moderate Stool Characteristics Formed Brown Data Completed and Pending Labs on day of discharge: Labs from last 24 hours 01/04/25 10:30 Sodium 142 Potassium 3.4 L Chloride 113 H Carbon Dioxide 18.2 L Anion Gap 10.8 BUN 9 Creatinine 0.7 Est GFR (CKD-EPI 2020) 94.31 Glucose 107 H Calcium 8.2 L Magnesium 1.6 L Iron 26 L TIBC 285 Transferrin % Sat 9 L Preliminary micro results at discharge 01/01/25 14:17 Blood Blood Culture - Preliminary NO GROWTH 72 HOURS 01/01/25 14:30 Blood Blood Culture - Preliminary NO GROWTH 72 HOURS 01/02/25 12:10 Tip/Tube Catheter Tip Culture - Preliminary 01/02/25 17:20 Blood Blood Culture - Preliminary NO GROWTH 24 HOURS 01/02/25 17:10 Blood Blood Culture - Preliminary NO GROWTH 24 HOURS PFSH All Active Problems (Updated 01/05/25 @ 00:02 by YAA SUAZO) Diabetes mellitus, iatrogenic (Acute) Palliative care encounter (Acute) Coag negative Staphylococcus bacteremia (Acute) Intractable vomiting without nausea (Acute) Intractable vomiting (Acute) Vomiting (Acute) Medical History (Updated 01/05/25 @ 00:02 by YAA SUAZO) Cholangiocarcinoma Surgical History (Updated 01/05/25 @ 00:02 by YAA SUAZO) H/O Whipple procedure Social History Smoking/Tobacco Use Status: Never Smoking risk assessment performed?: Yes Alcohol Intake: never Drug use: Never Substance use type: does not use Housing: apartment Do you feel safe at home: Yes Do you feel safe in your relationship?: Yes Time Spent with Patient Time Spent with Patient: 45-69 minutes Time was spent: preparing to see the patient(eg.review tests), obtaining and/or reviewing separately otained hiistory, ordering medications,tests, procedures, referring, communicating with other health med care manager, indepentently interpreting results, counseling the patient and care coordination
[2025-01-04] MEDS: cefTRIAXone 2 GM/50 ML BAG IVPB (19:48)
--- NOTE | 2025-01-05 16:42 | PDOC.HHF2F_ITS ---
Home Health Referral Home Health Orders Clinical synopsis of why skilled professionals are needed: 79-year-old male with a past medical history of poorly differentiated cholangiocarcinoma who has been on TPN due to chronic vomiting since his Whipple on October 17, 2024 at [facility] who presented with worse nausea and vomiting and fever. He has had nausea in vomiting since the whipple and thus was on TPN via PICC line, but vomiting was much worse on presentation. He was started on cefepime and vancomycin for sepsis along with scheduled metoclopramide and ondansatron QID. His vomiting improved greatly and he was able to eat more, though not a sufficient number of calories to go without TPN retirement. 05/23 admission blood cultures eventually grew Staph warneri (coagulase negative). [facility]. Cefepime stopped. Given his indwelling PICC line and immune suppressed state, it was felt prudent to remove the PICC line and repeat cultures, all of which were no growth x 48+ hours at the time of discharge, as was the culture of the PICC line (though removed after 6 days of antibiotics). Due to vascular access staff being away, he went home without replacing the PICC line. Plan discussed with Rosey ADELINA was 6 more days of daily IV ceftriaxone for a total of 9 days of IV antibiotics after the PICC removed. Infusions were set up at [facility] daily and PICC was set up as an outpatient procedure at [facility] for 01/06 so he can resume his TPN. He had been getting insulin mixed in his PICC line. Blood sugars were not high despite not getting this insulin. This suggests he has regained intrinsic function of his pancreas. He was given glargine insulin pen in case his sugars increase before his line was placed. Registered Nurse: Check all that apply Instruct on new or changed medication(s)/assess compliance: Ordered Assess for exacerbation of medical condition, instruct patient/caregivers on signs and symptoms to report for early detection: Ordered Charge Entry Clerk: Assist with community resources: Ordered Assist with retirement care planning: Ordered Home Bound Status Patient has a condition such that leaving home is medically contraindicated (Describe): Dependant on IV TPN therapy, active cancer Describe why leaving home would require a considerable and taxing effort: Requires frequent rest periods Encounter Date and Reason: I certify that a FTF encounter for this patient was performed on January 05, 2025 and that such encounter was related to the primary reason the patient requires home health services. The encounter was conducted in the following manner: * By me as the certifying physician, SHARED SERVICES MANAGER, PA or * By an inpatient physician, SHARED SERVICES MANAGER or PA during an inpatient stay who communicated findings to me, Certification And Authentication I certify that I composed the above information based on my clinical judgment relating to this patient's medical condition and, if applicable, clinical f indings communicated to me by the NPP or inpatient physician who performed the FTF encounter. Name of Provider that will be monitoring home health services: Rebecca Mane
--- NOTE | 2025-01-06 13:39 | CMACTNOTE_ITS ---
Date of service: 01/06/25 Time of Service: 11:10 Care Management Activity Note Activity Note Text Activity Note Text: Received word from [facility] that Noe's PICC line placement was unsuccessful x 4 attempts today. He has an appointment on Wednesday for another try. HH has been notified. Hospitalist and his discharging provider were both notified of this, as well as supervisor purification. CM [facility] of this [facility] [place] [facility].
--- NOTE | 2025-01-06 13:39 | PDOC.CMACT ---
Date of service: 01/06/25 Time of Service: 11:10 Care Management Activity Note Activity Note Text Activity Note Text: Received word from [facility] that Noe's PICC line placement was unsuccessful x 4 attempts today. He has an appointment on Wednesday for another try. HH has been notified. Hospitalist and his discharging provider were both notified of this, as well as automobile mechanic supervisor. CM [facility] of this [facility].
== END 2025-01-04 21:00 | disposition home health service (06) | DRG 872 ==
LOC: ER 17:48 → MS 19:32
PROVIDERS: Family Medicine; Admitting Provider Family Medicine; Emergency Provider Physician Assistant; Responsible Provider Family Medicine; Visit Provider Family Medicine
DX: A41.9 Sepsis, unspecified organism (principal); C22.1 Intrahepatic bile duct carcinoma; Z90.410 Acquired total absence of pancreas; B95.7 Other staphylococcus as the cause of diseases classified elsewhere; E13.9 Other specified diabetes mellitus without complications; R11.11 Vomiting without nausea; Z79.899 Other long term (current) drug therapy; Z79.4 Long term (current) use of insulin
CPT/HCPCS: 00123; 36415; 36416; 80048; 80053; 82962; 83690; 85027; 87040; 87077; 96361; 96365; 96375; 99285; J1650; 71045; 74177; 74250; 80202; 81003; 83540; 83550; 83605; 83615; 83735; 84484; 85025; 87070; 87186; 93005; 93010; 99223; 99231; 99232; 99233; 99239; J0131; J0690; J0692; J0696; J2405; J2765; J3373; J3490

== ENCOUNTER 2025-01-10 07:12 | Outpatient (RCR) | payer OTHER, MEDICARE, SELFPAY ==
[2025-01-05] MEDS: Normal Saline Flush 10 ML SYR IVP (13:18)
[2025-01-05] MEDS: cefTRIAXone 2 GM/50 ML BAG IVPB (13:18)
[2025-01-06 13:08] VITALS: BP 101/71; PULSE 94; RESP 18; TEMP 36.8; O2SAT 96
[2025-01-06] MEDS: cefTRIAXone 2 GM/50 ML BAG IVPB (13:19)
[2025-01-06] MEDS: Normal Saline Flush 10 ML SYR IVP (13:20)
[2025-01-07] MEDS: cefTRIAXone 2 GM/50 ML BAG IVPB (13:11)
[2025-01-07] MEDS: Normal Saline Flush 10 ML SYR IVP (13:12)
[2025-01-08] MEDS: cefTRIAXone 2 GM/50 ML BAG IVPB (13:07)
[2025-01-09] MEDS: cefTRIAXone 2 GM/50 ML BAG IVPB (12:43)
[2025-01-09] MEDS: Normal Saline Flush 10 ML SYR IVP (12:43)
[2025-01-10] MEDS: cefTRIAXone 2 GM/50 ML BAG IVPB (13:01)
[2025-01-10] MEDS: Normal Saline Flush 10 ML SYR IVP (13:02)
== END 2025-01-16 23:59 | disposition home or self-care (01) ==
LOC: INF 07:12
PROVIDERS: Visit Provider Family Medicine
DX: R78.81 Bacteremia (principal); B95.7 Other staphylococcus as the cause of diseases classified elsewhere
CPT/HCPCS: 96365; J0696

== ENCOUNTER 2025-01-18 20:48 | Outpatient (CLI) | payer OTHER, MEDICARE, SELFPAY ==
[2025-01-18 16:51] LABS: Abs Immature Grans 0.01 10^3/uL (0.0-0.06); HCT 35.6 % (40.0-50.0); HGB 11.1 g/dL (13.5-17.5); Immature Grans % 0.2 %; MCH 26.9 pg (27.0-33.0); MCHC 31.2 % (32.0-36.0); MCV 86 fL (80-95); MPV 10.6 fL (8.0-11.0); Platelet Count 245 10^3/uL (130-400); RBC 4.13 10^6/uL (4.36-5.78); RDW 15.2 % (11.8-14.1); RDW-SD 47.6 fL; WBC 5.78 10^3/uL (4.4-10.8)
[2025-01-18 18:17] LABS: ALT 30 U/L (16-63); AST 32 U/L (15-37); Albumin 3.1 g/dL (3.4-5.0); Alkaline Phosphatase 107 U/L (46-116); Anion Gap 12.2 mmol/L (3-11); BUN 12 mg/dL (7-18); Bilirubin, Total 0.5 mg/dL (0.2-1.0); CO2 24.8 mmol/L (21.0-32.0); Calcium 8.7 mg/dL (8.5-10.1); Chloride 110 mmol/L (98-107); Estimated GFR 68.71 (mL/min/1.73m2); Ferritin 34 ng/mL (26-388); Glucose 165 mg/dL (74-106); Potassium 3.8 mmol/L (3.5-5.1); Sodium 147 mmol/L (136-145); Total Protein 7.1 g/dL (6.4-8.2)
[2025-01-18 18:49] LABS: Iron 44 ug/dL (65-175); Total Iron Binding Capacity 346 ug/dL (250-450); Transferrin Sat 13 % (20-55)
[2025-01-19 18:16] LABS: CA 19-9 22 U/mL (<35)
[2025-01-25 16:55] LABS: DPYD Phenotype Normal metabolizer; DPYD Total Activity Score 2
== END 2025-01-18 20:49 | disposition home or self-care (01) ==
LOC: LBO 20:48
PROVIDERS: Visit Provider Internal Medicine Hematology & Oncology
DX: C22.1 Intrahepatic bile duct carcinoma (principal)
CPT/HCPCS: 36415; 80053; 81232; 84153; 82728; 83540; 83550; 85025; 86301

== ENCOUNTER 2025-02-01 05:17 | Outpatient (CLI) | payer OTHER, MEDICARE, SELFPAY ==
[2025-02-01 09:19] LABS: Abs Immature Grans 0.01 10^3/uL (0.0-0.06); HCT 35.7 % (40.0-50.0); HGB 11.4 g/dL (13.5-17.5); Immature Grans % 0.2 %; MCH 26.9 pg (27.0-33.0); MCHC 31.9 % (32.0-36.0); MCV 84 fL (80-95); MPV 10.0 fL (8.0-11.0); Platelet Count 300 10^3/uL (130-400); RBC 4.24 10^6/uL (4.36-5.78); RDW 15.3 % (11.8-14.1); RDW-SD 46.8 fL; WBC 5.38 10^3/uL (4.4-10.8)
[2025-02-01 09:36] LABS: ALT 62 U/L (16-63); AST 45 U/L (15-37); Albumin 3.0 g/dL (3.4-5.0); Alkaline Phosphatase 114 U/L (46-116); Anion Gap 11.5 mmol/L (3-11); BUN 10 mg/dL (7-18); Bilirubin, Total 0.4 mg/dL (0.2-1.0); CO2 23.5 mmol/L (21.0-32.0); Calcium 8.5 mg/dL (8.5-10.1); Chloride 109 mmol/L (98-107); Estimated GFR 87.42 (mL/min/1.73m2); Glucose 131 mg/dL (74-106); Potassium 3.1 mmol/L (3.5-5.1); Sodium 144 mmol/L (136-145); Total Protein 6.9 g/dL (6.4-8.2)
[2025-02-02 10:31] LABS: CA 19-9 23 U/mL (<35)
== END 2025-02-01 05:18 | disposition home or self-care (01) ==
LOC: LBO 05:18
PROVIDERS: Visit Provider Nurse Practitioner Family
DX: C22.1 Intrahepatic bile duct carcinoma (principal)
CPT/HCPCS: 36415; 80053; 85025; 86301

== ENCOUNTER 2025-02-08 03:28 | Outpatient (CLI) | payer OTHER, MEDICARE, SELFPAY ==
[2025-02-08 07:45] LABS: Abs Immature Grans 0.01 10^3/uL (0.0-0.06); HCT 34.9 % (40.0-50.0); HGB 11.1 g/dL (13.5-17.5); Immature Grans % 0.4 %; MCH 26.8 pg (27.0-33.0); MCHC 31.8 % (32.0-36.0); MCV 84 fL (80-95); MPV 9.4 fL (8.0-11.0); Platelet Count 198 10^3/uL (130-400); RBC 4.14 10^6/uL (4.36-5.78); RDW 14.9 % (11.8-14.1); RDW-SD 46.2 fL; WBC 2.83 10^3/uL (4.4-10.8)
[2025-02-08 08:06] LABS: ALT 73 U/L (16-63); AST 50 U/L (15-37); Albumin 3.0 g/dL (3.4-5.0); Alkaline Phosphatase 108 U/L (46-116); Anion Gap 12.8 mmol/L (3-11); BUN 9 mg/dL (7-18); Bilirubin, Total 0.4 mg/dL (0.2-1.0); CO2 21.2 mmol/L (21.0-32.0); Calcium 8.8 mg/dL (8.5-10.1); Chloride 109 mmol/L (98-107); Estimated GFR 68.71 (mL/min/1.73m2); Glucose 153 mg/dL (74-106); Potassium 3.6 mmol/L (3.5-5.1); Sodium 143 mmol/L (136-145); Total Protein 7.0 g/dL (6.4-8.2)
[2025-02-08 08:19] LABS: RBC Morphology Normal
[2025-02-09 09:44] LABS: CA 19-9 25 U/mL (<35)
== END 2025-02-08 03:29 | disposition home or self-care (01) ==
LOC: LBO 03:28
PROVIDERS: Visit Provider Nurse Practitioner Family
DX: C22.1 Intrahepatic bile duct carcinoma (principal)
CPT/HCPCS: 36415; 80053; 85025; 86301

== ENCOUNTER 2025-03-01 00:13 | Outpatient (RCR) | payer OTHER, MEDICARE, SELFPAY ==
[2025-02-22 09:34] LABS: Abs Immature Grans 0.04 10^3/uL (0.0-0.06); HCT 36.9 % (40.0-50.0); HGB 12.1 g/dL (13.5-17.5); Immature Grans % 0.8 %; MCH 29.0 pg (27.0-33.0); MCHC 32.8 % (32.0-36.0); MCV 89 fL (80-95); MPV 9.7 fL (8.0-11.0); Platelet Count 355 10^3/uL (130-400); RBC 4.17 10^6/uL (4.36-5.78); RDW 19.5 % (11.8-14.1); RDW-SD 61.1 fL; WBC 4.76 10^3/uL (4.4-10.8)
[2025-02-22 09:48] LABS: ALT 51 U/L (16-63); AST 25 U/L (15-37); Albumin 3.0 g/dL (3.4-5.0); Alkaline Phosphatase 106 U/L (46-116); Anion Gap 10.7 mmol/L (3-11); BUN 9 mg/dL (7-18); Bilirubin, Total 0.6 mg/dL (0.2-1.0); CO2 24.3 mmol/L (21.0-32.0); Calcium 8.6 mg/dL (8.5-10.1); Chloride 108 mmol/L (98-107); Estimated GFR 87.42 (mL/min/1.73m2); Glucose 148 mg/dL (74-106); Potassium 3.2 mmol/L (3.5-5.1); Sodium 143 mmol/L (136-145); Total Protein 7.0 g/dL (6.4-8.2)
[2025-02-22] MEDS: Normal Saline Flush 10 ML SYR IVP (09:50)
[2025-02-23 11:03] LABS: CA 19-9 27 U/mL (<35)
[2025-03-01 08:29] LABS: Abs Immature Grans 0.02 10^3/uL (0.0-0.06); HCT 34.6 % (40.0-50.0); HGB 11.4 g/dL (13.5-17.5); Immature Grans % 0.8 %; MCH 29.8 pg (27.0-33.0); MCHC 32.9 % (32.0-36.0); MCV 91 fL (80-95); MPV 10.0 fL (8.0-11.0); Platelet Count 200 10^3/uL (130-400); RBC 3.82 10^6/uL (4.36-5.78); RDW 18.4 % (11.8-14.1); RDW-SD 60.1 fL; WBC 2.57 10^3/uL (4.4-10.8)
[2025-03-01 08:48] LABS: RBC Morphology Normal
[2025-03-01 08:51] LABS: ALT 42 U/L (10-49); AST 35 U/L (<34); Albumin 3.6 g/dL (3.4-5.0); Alkaline Phosphatase 92 U/L (46-116); Anion Gap 14.4 mmol/L (3-11); BUN 10 mg/dL (9-23); Bilirubin, Total 0.60 mg/dL (0.2-1.2); CO2 22.6 mmol/L (20.0-31.0); Calcium 8.2 mg/dL (8.3-10.6); Chloride 112 mmol/L (98-107); Glucose 137 mg/dL (74-106); Potassium 3.1 mmol/L (3.5-5.1); Sodium 149 mmol/L (136-145); Total Protein 6.4 g/dL (5.7-8.2)
[2025-03-01] MEDS: Normal Saline Flush 10 ML SYR IVP (10:14)
[2025-03-02 09:56] LABS: CA 19-9 26 U/mL (<35)
== END 2025-03-18 23:59 | disposition home or self-care (01) ==
LOC: INF 00:13
PROVIDERS: Nurse Practitioner Family; Visit Provider Family Medicine
DX: Z45.2 Encounter for adjustment and management of vascular access device (principal); C22.1 Intrahepatic bile duct carcinoma
CPT/HCPCS: 36591; 80053; 85025; 86301

== ENCOUNTER 2025-04-17 00:06 | Outpatient (RCR) | payer OTHER, MEDICARE, SELFPAY ==
[2025-03-22 09:54] LABS: Abs Immature Grans 0.02 10^3/uL (0.0-0.06); HCT 39.6 % (40.0-50.0); HGB 13.1 g/dL (13.5-17.5); Immature Grans % 0.4 %; MCH 31.4 pg (27.0-33.0); MCHC 33.1 % (32.0-36.0); MCV 95 fL (80-95); MPV 10.5 fL (8.0-11.0); Platelet Count 238 10^3/uL (130-400); RBC 4.17 10^6/uL (4.36-5.78); RDW 20.0 % (11.8-14.1); RDW-SD 70.4 fL; WBC 5.51 10^3/uL (4.4-10.8)
[2025-03-22 10:28] LABS: ALT 36 U/L (10-49); AST 30 U/L (<34); Albumin 3.7 g/dL (3.2-5.0); Alkaline Phosphatase 109 U/L (46-116); Anion Gap 11.9 mmol/L (3-11); BUN 13 mg/dL (9-23); Bilirubin, Total 0.60 mg/dL (0.2-1.2); CO2 22.1 mmol/L (20.0-31.0); Calcium 8.4 mg/dL (8.3-10.6); Chloride 114 mmol/L (98-107); Glucose 201 mg/dL (74-106); Potassium 3.4 mmol/L (3.5-5.1); Sodium 148 mmol/L (136-145); Total Protein 6.4 g/dL (5.7-8.2)
[2025-03-22] MEDS: Normal Saline Flush 10 ML SYR IVP (11:00)
[2025-03-23 11:19] LABS: CA 19-9 24 U/mL (<35)
[2025-04-17 11:01] LABS: Abs Immature Grans 0.04 10^3/uL (0.0-0.06); HCT 41.3 % (40.0-50.0); HGB 14.0 g/dL (13.5-17.5); Immature Grans % 0.7 %; MCH 32.2 pg (27.0-33.0); MCHC 33.9 % (32.0-36.0); MCV 95 fL (80-95); MPV 10.3 fL (8.0-11.0); Platelet Count 223 10^3/uL (130-400); RBC 4.35 10^6/uL (4.36-5.78); RDW 17.9 % (11.8-14.1); RDW-SD 62.5 fL; WBC 5.75 10^3/uL (4.4-10.8)
[2025-04-17 11:19] LABS: ALT 32 U/L (10-49); AST 29 U/L (<34); Albumin 3.6 g/dL (3.2-5.0); Alkaline Phosphatase 107 U/L (46-116); Anion Gap 10.2 mmol/L (3-11); BUN 10 mg/dL (9-23); Bilirubin, Total 0.6 mg/dL (0.2-1.2); CO2 23.8 mmol/L (20.0-31.0); Calcium 8.6 mg/dL (8.3-10.6); Chloride 110 mmol/L (98-107); Glucose 150 mg/dL (74-106); Potassium 3.5 mmol/L (3.5-5.1); Sodium 144 mmol/L (136-145); Total Protein 6.6 g/dL (5.7-8.2)
[2025-04-17] MEDS: Normal Saline Flush 10 ML SYR IVP (14:50)
[2025-04-18 09:39] LABS: CA 19-9 21 U/mL (<35)
== END 2025-04-18 23:59 | disposition home or self-care (01) ==
LOC: INF 00:06
PROVIDERS: Visit Provider Nurse Practitioner Family
DX: Z45.2 Encounter for adjustment and management of vascular access device (principal); C22.1 Intrahepatic bile duct carcinoma; C61 Malignant neoplasm of prostate; C79.51 Secondary malignant neoplasm of bone
CPT/HCPCS: 36591; 80053; 84154; 85025; 86301